=== PATIENT | male | born 1960 | race Caucasian/White ===

== ENCOUNTER 2016-10-26 10:03 | Outpatient (CLI) | payer MEDICARE | END 2016-10-26 10:04 | disposition home or self-care (01) | DX: B19.20 Unspecified viral hepatitis C without hepatic coma (principal) ==

== ENCOUNTER 2016-11-02 07:19 | Day surgery (SDC) | payer MEDICARE ==
[2016-11-02] MEDS ORDERED: LACTATED RINGERS 1,000 ML IV ONE ×2 (07:53→08:55)
[2016-11-02] MEDS ORDERED: ONDANSETRON 4 MG/2 ML VIAL IVP ONE (09:06)
[2016-11-02] MEDS ORDERED: MIDAZOLAM 2 MG/2 ML VIAL IVP ONE (09:06)
[2016-11-02] MEDS ORDERED: fentaNYL 250 MCG/5 ML VIAL IVP ONE (09:06)
== END 2016-11-02 07:20 | disposition home or self-care (01) ==
PROC: 0DBH8ZZ Excision of Cecum, Via Natural or Artificial Opening Endoscopic (ICD-10-PCS; principal; 2016-11-02 08:30)
DX: Z12.11 Encounter for screening for malignant neoplasm of colon (principal); D12.0 Benign neoplasm of cecum; K57.30 Diverticulosis of large intestine without perforation or abscess without bleeding; I10 Essential (primary) hypertension; N40.0 Benign prostatic hyperplasia without lower urinary tract symptoms
CPT/HCPCS: 45380; J3010; J7120

== ENCOUNTER 2016-11-29 09:19 | Outpatient (CLI) | payer MEDICARE | END 2016-11-29 09:20 | disposition home or self-care (01) | DX: B19.20 Unspecified viral hepatitis C without hepatic coma (principal) ==

== ENCOUNTER 2016-12-13 10:18 | Outpatient (CLI) | payer MEDICARE | END 2016-12-13 10:19 | disposition home or self-care (01) | DX: B19.20 Unspecified viral hepatitis C without hepatic coma (principal) ==

== ENCOUNTER 2017-01-10 09:11 | Outpatient (CLI) | payer MEDICARE | END 2017-01-10 09:12 | disposition home or self-care (01) | DX: B19.20 Unspecified viral hepatitis C without hepatic coma (principal) ==

== ENCOUNTER 2017-02-07 08:56 | Outpatient (CLI) | payer MEDICARE | END 2017-02-07 08:57 | disposition home or self-care (01) | DX: B19.20 Unspecified viral hepatitis C without hepatic coma (principal) ==

== ENCOUNTER 2017-05-10 09:27 | Outpatient (CLI) | payer MEDICARE ==
[2017-05-10 10:56] LABS: ALBUMIN/GLOBULIN RATIO 1.6 (1.0-2.2); CALCIUM 9.4 mg/dL (8.5-10.3); CREATININE 0.8 mg/dL (0.6-1.2); POTASSIUM 3.8 mmol/L (3.5-5.0); TOTAL PROTEIN 7.1 g/dL (6.7-8.2)
[2017-05-10 10:58] LABS: BASOPHILS % (AUTO) 0.5 %; EOSINOPHILS # (AUTO) 0.1 10^3/uL (0.0-0.7); EOSINOPHILS % (AUTO) 1.4 %; HCT - HEMATOCRIT 43.1 % (42.0-52.0); HGB - HEMOGLOBIN 14.9 g/dL (14.0-18.0); LYMPHOCYTES # (AUTO) 1.5 10^3/uL (1.5-3.5); LYMPHOCYTES % (AUTO) 31.5 %; MEAN CORPUSCULAR HEMOGLOBIN 30.6 pg (27.0-31.0); MEAN CORPUSCULAR HGB CONC 34.7 g/dL (32.0-36.0); MEAN CORPUSCULAR VOLUME 88.2 fL (80.0-94.0); MEAN PLATELET VOLUME 7.8 fL (7.4-11.4); MONOCYTES # (AUTO) 0.5 10^3/uL (0.0-1.0); MONOCYTES % (AUTO) 9.8 %; NEUTROPHILS # (AUTO) 2.7 10^3/uL (1.5-6.6); NEUTROPHILS % (AUTO) 56.8 %; RED BLOOD COUNT 4.88 10^6/uL (4.70-6.10); RED CELL DISTRIBUTION WIDTH 13.1 % (12.0-15.0); UNCORRECTED WHITE BLOOD COUNT 4.7 x10^3/uL; WHITE BLOOD COUNT 4.7 x10^3/uL (4.8-10.8)
== END 2017-05-10 09:28 | disposition home or self-care (01) ==
LOC: LAB 09:27
PROVIDERS: ATTEND Internal Medicine Gastroenterology
DX: B19.20 Unspecified viral hepatitis C without hepatic coma (principal)
CPT/HCPCS: 36415; 80053; 85025; 87522

== ENCOUNTER 2018-12-26 10:48 | Outpatient (CLI) | payer MEDICARE ==
--- NOTE | 2018-12-26 13:55 | Mammography Report ---
Reason: UNSPECIFIED LUMP IN THE RIGHT BREAST, UPPER INNER Procedure Date: 12/26/2018 Accession Number: [id number] / [id number] Procedure: ANTELMO - Diagnostic Dig Bilat CPT Code: FULL RESULT: EXAM: Diagnostic Dig Bilat DATE: 12/26/2018 11:48 AM CLINICAL HISTORY: Palpable lump in the right upper inner breast, present for approximately one year. TECHNIQUE: Bilateral CC, laterally exaggerated CC and MLO views as well as a right ML view are obtained. COMPARISON: None FINDINGS: The breasts demonstrate scattered fibroglandular densities bilaterally. There is a greater amount of breast glandular type tissue on the right as compared to the left, gynecomastia and typically benign. Seen on the right cc view only at the medial margin of the images a well-circumscribed hyperdense 1 cm nodule, incompletely imaged. Focused right breast ultrasound demonstrates a immediately subdermal hypoechoic complex cyst versus hypoechoic mass which measures up to 1 cm and demonstrates increased through transmission, and no internal vascularity. No pathognomonic features of a sebaceous cyst such as a duct to the skin surface are identified. Nevertheless, the appearance is that of a typically benign skin finding such as an inclusion cyst or sebaceous cyst. No suspicious mass, architectural distortion or calcifications are identified. IMPRESSION: Benign findings RECOMMENDATION: Clinical correlation. BIRADS CATEGORY 2: Benign findings STANDARD QUALIFYING STATEMENTS: 1. This examination was not reviewed with the aid of Computer-Aided Detection (CAD). 2. A negative or benign imaging report should not delay biopsy if clinically suspicious findings are present. Consider surgical consultation if warrented. More than 5% of cancers are not identified by imaging. 3. Dense breasts may obscure an underlying neoplasm. 4. This examination was reviewed with the aid of 3D imaging (tomography).
== END 2018-12-26 10:49 | disposition home or self-care (01) ==
LOC: DI 10:48
PROVIDERS: ATTEND Family Medicine
DX: N63.12 Unspecified lump in the right breast, upper inner quadrant (principal)
CPT/HCPCS: 76642; 77066

== ENCOUNTER 2019-07-29 11:34 | Emergency (ER) | payer MEDICARE ==
--- NOTE | 2019-07-29 14:21 | XRAY Report ---
Reason: slip fall lateral pain Procedure Date: 07/29/2019 Accession Number: [id number] / [id number] Procedure: XR - Hip w/Pelvis 1V LT CPT Code: FULL RESULT: EXAM: PELVIS RADIOGRAPHY EXAM DATE: 07/29/2019 01:56 PM. CLINICAL HISTORY: Slip fall lateral pain. COMPARISON: KNEE 4 VIEW LT 07/29/2019 1:36 PM. TECHNIQUE: 1 view. FINDINGS: Bones: Normal. No fracture or bone lesion. Joints: The visualized hip, pubis symphysis, and sacroiliac joints are preserved. No subluxation. Soft Tissues: Prior lumbosacral fusion surgery. No soft tissue swelling. IMPRESSION: No fracture evident. RADIA
--- NOTE | 2019-07-29 14:26 | XRAY Report ---
Reason: slip/twist unstable Procedure Date: 07/29/2019 Accession Number: [id number] / [id number] Procedure: XR - Knee 4 View LT CPT Code: FULL RESULT: EXAM: LEFT KNEE RADIOGRAPHY EXAM DATE: 07/29/2019 02:01 PM. CLINICAL HISTORY: Slip/twist, unstable. COMPARISON: None. TECHNIQUE: 3 views. FINDINGS: Bones: Normal. No fractures or bone lesions. Joints: No suprapatellar joint effusion. No subluxation. Knee joint space within normal limits. Soft Tissues: Normal. No soft tissue swelling. IMPRESSION: No fracture or subluxation detected. RADIA
--- NOTE | 2019-07-29 14:56 | ED Physician Documentation ---
PD HPI LOWER EXT INJURY - Stated complaint Stated Complaint: KNEE/HIP PX - Chief complaint Chief Complaint: Ext Problem - History obtained from History obtained from: Patient - History of Present Illness PD HPI LOW EXT INJURY LOCATION: Left, Knee Type of injury: Twist Where injury occurred: Home Timing - onset: How many days ago (5) Timing - duration: Days (5) Timing - details: Abrupt onset, Still present Improved by: Rest, Immobilization Worsened by: Moving, Palpating Associated symptoms: No: Swelling Similar symptoms before: Diagnosis (knee sprain) Recently seen: Not recently seen - Additional information Additional information: 59 yo male twisted his knee one week ago and has pain from the knee up to the left hip and his knee feels unstable. His pain has persisted and he has come to the ED for evaluation. Review of Systems Constitutional: denies: Fever Ears: denies: Ear pain Nose: denies: Congestion Throat: denies: Sore throat Respiratory: denies: Cough GI: denies: Vomiting PD PAST MEDICAL HISTORY - Past Medical History Past Medical History: Yes Cardiovascular: Hypertension, High cholesterol Respiratory: None Neuro: Peripheral neuropathy Endocrine/Autoimmune: None GI: GERD : None HEENT: None Psych: None Musculoskeletal: Chronic back pain Derm: None - Past Surgical History Past Surgical History: Yes Ortho: Shoulder arthroplasty, Spine surgery - Present Medications Home Medications: Ambulatory Orders Medication Instructions Recorded Confirmed Gabapentin 600 mg ORAL DAILY 11/01/16 11/01/16 Losartan [Cozaar] 10 mg ORAL DAILY 11/01/16 11/01/16 Norethindrone-Ethinyl Estrad 25 mg ORAL BID 11/01/16 11/01/16 [Nortrel 0.5-35 Tablet] Tamsulosin [Flomax] 1 cap ORAL DAILY 11/01/16 11/01/16 oxyCODONE ER [OxyCONTIN] 10 mg ORAL BID 11/01/16 11/01/16 oxyCODONE [Roxicodone] 10 mg ORAL BID PRN 11/01/16 11/01/16 - Allergies Allergies/Adverse Reactions: Allergies Allergy/AdvReac Type Severity Reaction Status Date / Time Penicillins Allergy Hives Verified 07/29/19 12:02 - Social History Does the pt smoke?: No Smoking Status: Never smoker Does the pt drink ETOH?: Yes Does the pt have substance abuse?: No - Immunizations Immunizations are current?: Yes - POLST Patient has POLST: No PD ED PE NORMAL - Vitals Vital signs reviewed: Yes (hypertensive) - General General: Alert and oriented X 3, No acute distress, Well developed/nourished - HEENT HEENT: Atraumatic, PERRL, EOMI - Respiratory Respiratory: No respiratory distress - Derm Derm: Normal color, Warm and dry, No rash - Extremities Extremities: No deformity, No edema, Other (Exam of the left knee shows no specific tenderness and only a slight opening medially with valgus forces. The distal n/v is intact. 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 ), EMP read indepedently, See rad report PD MEDICAL DECISION MAKING - ED course Complexity details: reviewed results, re-evaluated patient, considered [facility], d/w patient, d/w family ED course: 59-year-old male with a sprain to his left knee is placed into a knee immobilizer. Departure - Departure Disposition: 01 Home, Self Care Clinical Impression: Sprain of left knee Qualifiers: Encounter type: initial encounter Involved ligament of knee: unspecified ligament Qualified Code(s): S83.92XA - Sprain of unspecified site of left knee, initial encounter Condition: Stable Instructions: ED Sprain Knee Follow-Up: [facility] [Provider Group] Discharge Date/Time: 07/29/19 15:16
[2019-07-29 15:14] VITALS: BP 142/87
== END 2019-07-29 15:16 | disposition home or self-care (01) ==
LOC: ED 11:34
DX: S83.92XA Sprain of unspecified site of left knee, initial encounter (principal); X50.1XXA Overexertion from prolonged static or awkward postures, initial encounter; Y93.01 Activity, walking, marching and hiking; Y92.009 Unspecified place in unspecified non-institutional (private) residence as the place of occurrence of the external cause; I10 Essential (primary) hypertension
CPT/HCPCS: 99282; 99284

== ENCOUNTER 2019-08-19 16:34 | Outpatient (CLI) | payer MEDICARE ==
--- NOTE | 2019-08-20 09:51 | MRI Report ---
Reason: INTERNAL DERANGEMENT KNEE Procedure Date: 08/19/2019 Accession Number: [id number] / [id number] Procedure: MRI - Knee LT W/O CPT Code: Final Report FULL RESULT: EXAM: LEFT KNEE MRI WITHOUT CONTRAST EXAM DATE: 08/19/2019 05:21 PM. CLINICAL HISTORY: Left knee pain instability. COMPARISON: KNEE 4 VIEW LT 07/29/2019 1:36 PM. TECHNIQUE: Multiplanar, multisequence T1-weighted and fluid-sensitive sequences of the knee without contrast. Other: None. FINDINGS: Bones and articular cartilage: There is focal grade II-III chondromalacia at the medial femoral condyle. Focal grade III chondromalacia at the posterior aspect of the lateral tibial plateau. Grade III chondromalacia at the medial patellar facet. No subluxations. Medial Meniscus: Horizontal tear at the middle and inner thirds of the posterior horn. Lateral Meniscus: The lateral meniscus is intact. Cruciate Ligaments: There is mucoid degeneration and/or a mild sprain of the anterior cruciate ligament. The posterior cruciate ligament is unremarkable. Collateral Ligaments: The medial collateral and lateral collateral ligamentous structures are intact. Tendons: The quadriceps, patellar, semimembranosus, and popliteus tendons are unremarkable. Musculature: No edema or fatty atrophy. Other: No effusion. No popliteal cyst. No loose bodies. The medial and lateral retinacula are intact. The subcutaneous tissues and fat pads are unremarkable. IMPRESSION: 1. Tricompartmental chondromalacia. 2. Horizontal tear at the posterior horn medial meniscus. 3. Mucoid degeneration and/or mild sprain of the anterior cruciate ligament. RADIA
== END 2019-08-19 16:35 | disposition home or self-care (01) ==
LOC: DI 16:34
PROVIDERS: ATTEND Family Medicine
DX: M94.262 Chondromalacia, left knee (principal); S83.242A Other tear of medial meniscus, current injury, left knee, initial encounter

== ENCOUNTER 2019-08-27 16:26 | Outpatient (CLI) | payer MEDICARE ==
[2019-08-27] MEDS ORDERED: GADOBUTROL 15 MMOL/15 ML VIAL ONE (17:31)
[2019-08-27] MEDS ORDERED: GADOBUTROL 15 MMOL/15 ML VIAL IVP ONE (17:53)
--- NOTE | 2019-08-28 12:24 | MRI Report ---
Reason: RADICULOPATHY LUMBAR REGION Procedure Date: 08/27/2019 Accession Number: [id number] / [id number] Procedure: MRI - Lumbar Spine W/WO CPT Code: Final Report FULL RESULT: EXAM: MRI LUMBAR SPINE WITHOUT AND WITH CONTRAST EXAM DATE: 08/27/2019 06:11 PM. CLINICAL HISTORY: Lumbar radiculopathy. COMPARISONS: MRI LUMBAR SPINE 10/13/2012 7:[address] W/O 03/12/2013 11:23 AM. TECHNIQUE: Multiplanar, multisequence T1-weighted and fluid-sensitive sequences of the lumbar spine from T12 to S1 before and after administration of intravenous contrast. Other: None. IV contrast: 12 cc Gadavist. FINDINGS: Neurologic Structures: The conus terminates at T12-L1. The conus medullaris and cauda equina are unremarkable. Alignment: Grade 1 retrolisthesis at L3-L4 by approximately 3 mm. Bone Marrow: Note, transitional anatomy is present at the lumbosacral junction. For the purpose of this report, the transitional segment will be designated as L5 which is sacralized. This numerical designation would be consistent with a numerical designation given on the previous studies. There are metallic left-sided pedicle screws and left-sided posterior interlocking fusion tavia at L4 and L5. No acute fracture or bone lesions. Disk Levels/Facets: L5-S1: Hypoplastic disk. No stenosis. Previous right hemilaminectomy. No change. L4-L5: Interbody fusion device within the disk space. Bony fusion between L4 and L5 vertebral bodies. Previous partial left facetectomy. Previous right hemilaminectomy. No canal stenosis. There is questionable bony union between the left posterior lateral inferior aspect of the L4 vertebral body and the anterior inferior aspect of the left L4-L5 facet joint. Mild left foraminal stenosis. L3-L4: Small to moderate sized disk bulge which is asymmetric towards the right which has increased in size since the prior study. There are posterior lateral osteophytes. Moderate left facet arthropathy. Previous right hemilaminectomy. Mild to moderate canal stenosis. Mild to moderate foraminal stenosis which has increased in size since the prior study. L2-L3: Minimal disk bulge. Mild facet arthropathy. Mild canal and foraminal stenosis which has increased slightly since prior study. L1-L2: Minimal disk bulge. Mild facet arthropathy. No stenosis. No change. T12-L1: Unremarkable. Spinal Canal: No enhancing masses within the spinal canal. No epidural abscess. Musculature: Normal. No edema, abnormal enhancement, or fatty atrophy. Other: The visualized retroperitoneum is unremarkable. IMPRESSION: 1. Note, transitional anatomy is present at the lumbosacral junction. For the purpose of this report and to be consistent with the numerical designation given on the previous studies, the transitional segment will be designated as L5 which is sacralized. Prior to any surgical intervention, an intraoperative lateral lumbar spine radiograph with a localizing instrument is recommended. This radiograph should be correlated with the sagittal MR images to avoid any confusion with respect to exact anatomic location. 2. Small to moderate sized asymmetric disk bulge/osteophyte complex towards the right at L3-L4. Mild to moderate canal and foraminal stenosis. The disk bulge /osteophyte complex and the degree of foraminal stenosis have increased since the prior study. 3. Postoperative changes related to previous fusion and decompression at L4-L5. There is questionable bony union between the left posterior lateral inferior aspect of the L4 vertebral body in the anteroinferior aspect of the left L4-L5 facet joint. Mild left foraminal stenosis. Comment: The following findings are so common in adults without low back pain that while we report their presence, they must be interpreted with caution and in the context of the clinical situation. (Reference Jose Eliask et al, Spine 2001) Prevalence of findings in patients without low back pain: Disk degeneration (any evidence): 92% Disk desiccation/T2 signal loss: 83% Disk height loss: 56% Disk bulge: 64% Disk protrusion: 32% Annular tear/high intensity zone: 38% RADIA
== END 2019-08-27 16:27 | disposition home or self-care (01) ==
LOC: DI 16:26
PROVIDERS: ATTEND Orthopaedic Surgery
DX: M47.816 Spondylosis without myelopathy or radiculopathy, lumbar region (principal); M48.061 Spinal stenosis, lumbar region without neurogenic claudication; Z98.1 Arthrodesis status; M51.36 Other intervertebral disc degeneration, lumbar region
CPT/HCPCS: 72158; A9585

== ENCOUNTER 2019-09-11 05:01 | Outpatient (CLI) | payer MEDICARE | END 2019-09-11 05:02 | disposition EMS.NT | LOC: EMS 05:01 | PROVIDERS: ATTEND Surgery | DX: M54.5 Low back pain (principal) ==

== ENCOUNTER 2020-03-31 09:30 | Outpatient (CLI) | payer MEDICARE ==
[2020-03-31 11:59] LABS: BASOPHILS % (AUTO) 0.8 %; EOSINOPHILS # (AUTO) 0.2 10^3/uL (0.0-0.7); HGB - HEMOGLOBIN 14.8 g/dL (14.0-18.0); LYMPHOCYTES # (AUTO) 1.8 10^3/uL (1.5-3.5); LYMPHOCYTES % (AUTO) 36.9 %; MEAN CORPUSCULAR HEMOGLOBIN 30.5 pg (27.0-31.0); MEAN CORPUSCULAR HGB CONC 33.9 g/dL (32.0-36.0); MEAN CORPUSCULAR VOLUME 90.1 fL (80.0-94.0); MEAN PLATELET VOLUME 9.9 fL (7.4-11.4); MONOCYTES # (AUTO) 0.7 10^3/uL (0.0-1.0); MONOCYTES % (AUTO) 13.2 %; NEUTROPHILS # (AUTO) 2.3 10^3/uL (1.5-6.6); NEUTROPHILS % (AUTO) 45.7 %; PLT - PLATELET COUNT 149 10^3/uL (130-450); RED BLOOD COUNT 4.85 10^6/uL (4.70-6.10); RED CELL DISTRIBUTION WIDTH 13.1 % (12.0-15.0)
[2020-03-31 12:20] LABS: ALBUMIN 4.7 g/dL (3.2-5.5); ALBUMIN/GLOBULIN RATIO 2.2 (1.0-2.2); BILIRUBIN,TOTAL 0.8 mg/dL (0.2-1.0); CREATININE 0.7 mg/dL (0.6-1.2); TOTAL PROTEIN 6.8 g/dL (6.7-8.2)
[2020-03-31 12:32] LABS: FERRITIN 94.2 ng/mL (23.9-336.2)
== END 2020-03-31 23:59 | disposition home or self-care (01) ==
LOC: LAB.WCP 09:30
PROVIDERS: ATTEND Family Medicine
DX: D64.9 Anemia, unspecified (principal)
CPT/HCPCS: 36415; 80053; 82607; 82728; 82746; 83540; 84466; 85025

== ENCOUNTER 2020-12-08 06:39 | Outpatient (CLI) | payer MEDICARE, MEDICAID ==
--- NOTE | 2020-12-08 17:08 | Ultrasound Report ---
PROCEDURE: Abdomen Complete INDICATIONS: UMBILICAL HERNIA, LUQ ABD PAIN TECHNIQUE: Real-time scanning was performed of the abdominal and retroperitoneal organs, with image documentatio n. COMPARISON: Prior abdominal ultrasound dated 04/11/2011 FINDINGS: Liver: Liver is diffusely increased in echogenicity and coarse in appearance. No focal hepatic abnorm ality seen. Gallbladder: Normal appearance of the gallbladder. Biliary ducts: Intrahepatic bile ducts are non-dilated. Extrahepatic bile duct caliber measures 4.4 mm. Normal is 6-7 mm or less in diameter, or 10 mm or less post-cholecystectomy. Pancreas: Visualized portions of the pancreas are sonographically normal. Spleen: Spleen is normal in size and homogeneous in echotexture. Kidneys: Kidneys are normal in size and echotexture. Right kidney measures 10.9 cm long; left kidne y measures 12.2 cm long. No hydronephrosis or nephrolithiasis. No solid masses. Aorta: Visualized aorta is normal in caliber at less than 3 cm. Iliacs: Proximal common iliac arteries are normal in caliber at less than 2.5 cm. IVC: Intrahepatic inferior vena cava is patent. Miscellaneous: No free abdominal fluid. Fat-containing umbilical hernia present. IMPRESSION: 1. Increased echogenicity noted throughout the liver likely related to hepatic steatosis; however oth er sources of hepatocellular disease cannot be excluded and close clinical correlation and follow-up is recommended. 2. Fat-containing umbilical hernia with fascial defect estimated at 3.5 x 2.8 cm. Reviewed by: MICHELINE Esteves on 12/08/2020 5:06 PM PST Approved by: Oly Logan MD on 12/08/2020 5:06 PM PST Station ID: [id number]
== END 2020-12-08 06:40 | disposition home or self-care (01) ==
LOC: DI 06:39
PROVIDERS: ATTEND Internal Medicine Gastroenterology
DX: R10.12 Left upper quadrant pain (principal); K42.9 Umbilical hernia without obstruction or gangrene

== ENCOUNTER 2021-06-16 12:33 | Outpatient (CLI) | payer MEDICAID, MEDICARE | END 2021-06-16 12:34 | disposition home or self-care (01) | LOC: COV 12:33 | PROVIDERS: ATTEND Family Medicine | DX: Z01.812 Encounter for preprocedural laboratory examination (principal); Z20.822 Contact with and (suspected) exposure to COVID-19 ==

== ENCOUNTER 2021-07-08 08:08 | Outpatient (CLI) | payer MEDICARE ==
[2021-07-08 08:37] LABS: BASOPHILS % (AUTO) 0.7 %; EOSINOPHILS # (AUTO) 0.1 10^3/uL (0.0-0.7); EOSINOPHILS % (AUTO) 1.6 %; HGB - HEMOGLOBIN 15.9 g/dL (14.0-18.0); LYMPHOCYTES # (AUTO) 1.5 10^3/uL (1.5-3.5); LYMPHOCYTES % (AUTO) 32.4 %; MEAN CORPUSCULAR HEMOGLOBIN 33.2 pg (27.0-31.0); MEAN CORPUSCULAR HGB CONC 35.3 g/dL (32.0-36.0); MEAN CORPUSCULAR VOLUME 93.9 fL (80.0-94.0); MEAN PLATELET VOLUME 9.3 fL (7.4-11.4); MONOCYTES # (AUTO) 0.4 10^3/uL (0.0-1.0); MONOCYTES % (AUTO) 9.6 %; NEUTROPHILS # (AUTO) 2.5 10^3/uL (1.5-6.6); NEUTROPHILS % (AUTO) 55.7 %; PLT - PLATELET COUNT 150 10^3/uL (130-450); RED BLOOD COUNT 4.79 10^6/uL (4.70-6.10); RED CELL DISTRIBUTION WIDTH 12.3 % (12.0-15.0); WHITE BLOOD COUNT 4.5 x10^3/uL (4.8-10.8)
[2021-07-08 08:56] LABS: INR 1.1 (0.8-1.2); PT - PROTHROMBIN TIME 12.8 secs (9.9-12.6)
[2021-07-08 09:05] LABS: ALBUMIN 4.2 g/dL (3.2-5.5); ALBUMIN/GLOBULIN RATIO 1.4 (1.0-2.2); BILIRUBIN,TOTAL 1.5 mg/dL (0.2-1.0); CALCIUM 10.3 mg/dL (8.5-10.3); CREATININE 0.7 mg/dL (0.6-1.2); POTASSIUM 3.8 mmol/L (3.5-5.0); TOTAL PROTEIN 7.1 g/dL (6.7-8.2)
== END 2021-07-08 08:09 | disposition home or self-care (01) ==
LOC: LAB 08:08
PROVIDERS: ATTEND Family Medicine
DX: M54.15 Radiculopathy, thoracolumbar region (principal)
CPT/HCPCS: 36415; 80053; 85025; 85610; 87640

== ENCOUNTER 2021-07-12 15:59 | Outpatient (CLI) | payer MEDICARE | END 2021-07-12 16:00 | disposition home or self-care (01) | LOC: COV 15:59 | PROVIDERS: ATTEND Family Medicine | DX: Z01.812 Encounter for preprocedural laboratory examination (principal); Z20.822 Contact with and (suspected) exposure to COVID-19 ==

== ENCOUNTER 2021-12-21 08:50 | Outpatient (CLI) | payer MEDICAID, MEDICARE ==
--- NOTE | 2021-12-21 14:35 | XRAY Report ---
PROCEDURE: Thoracic Spine 2 View INDICATIONS: MID BACK PAIN, LOW BACK PAIN TECHNIQUE: 3 views of the thoracic spine were acquired. COMPARISON: None. FINDINGS: Bones: No fractures or dislocations. No suspicious bony lesions. 12 pairs of ribs are noted, and a ppear intact where visualized. Lower thoracic spine neurostimulator leads. Moderate degenerative disc changes noted throughout the thoracic spine. Soft tissues: No paravertebral stripe thickening. IMPRESSION: 1. Multilevel moderate degenerative disc disease. 2. No fracture. No acute osseous lesion. If there is continued clinical concern for pathology, then M RI should be considered for further evaluation. Reviewed by: Jennifer Covarrubias MD, PhD on 12/21/2021 2:33 PM PDT Approved by: Jennifer Covarrubias MD, PhD on 12/21/2021 2:33 PM PDT Station ID: [id number]
== END 2021-12-21 08:51 | disposition home or self-care (01) ==
LOC: DI 08:50
PROVIDERS: ATTEND Anesthesiology Pain Medicine
DX: M51.34 Other intervertebral disc degeneration, thoracic region (principal); R07.9 Chest pain, unspecified; I10 Essential (primary) hypertension; Z87.891 Personal history of nicotine dependence; R94.39 Abnormal result of other cardiovascular function study
CPT/HCPCS: 72070; 78452; 93017; A9500; J2785

== ENCOUNTER 2021-12-21 08:59 | Outpatient (CLI) | payer MEDICARE ==
--- NOTE | 2021-12-21 09:47 | CARDIAC PROCEDURE NOTE ---
Stress Test Report Service Date: 12/21/21 Service Time: 09:00 Ordering Provider: Casa Wilks DO Indication for Test: Assess atypical chest discomfort. Significant Medical History: -Julio César has a complex medical history, largely emanating from a severe accident in 2010 occurring at his occupational site at [email or web address]. He fell on some ice, with severe spinal injuries that have subsequently required a total of 4 back surgeries, including laminectomies and fusions, most recently with implant of a neurostimulator, that has provided great relief of his back pain and allowed him to be more active with reduced pain medication requirement. These injuries are superimposed on a known history of ankylosing spondylitis. -He underwent a trial with a temporary neuromodulator implant with immediate pain reduction in fall 2020, that was followed by the permanent implant. He reports that after a few weeks of healing he started to notice some undulating left flank pain, that remains present nearly constantly, varying in intensity in the range of 34/10. Over the ensuing months he has experienced episodes that typically start with a sense of his heart racing, followed by shortness of breath and then radiation of the stabbing left flank discomfort around anteriorly toward his heart and central chest. There is an associated tenderness, that can be reduced by massaging and he notes that standing up and moving around can also help reduce the intensity of this discomfort. Symptom episodes may last anywhere from 5 minutes to 5 hours. With his effective neuromodulation and current pain regimen he is able to perform 1 to 2 hours of household tasks and does not experience typical chest pressure/heaviness/discomfort with these activities, nor reduction in his stamina, per his report. Cardiac Risk Factors: Positive for several years of treated hypertension; negative for diabetes, hyperlipidemia and family history of coronary heart disease. He smoked briefly over 40 years ago, so tobacco is not a risk factor for him. Type of Stress Test: Pharmacologic Stress Test with MPI Pharmacologic Agent: Lexiscan Procedure: -Pharmacologic Stress Test- After signing informed consent, the patient underwent rest SPECT imaging and then performed a walking Lexiscan pharmacologic stress test. After obtaining resting vital signs and EKG (resting), the patient walked for 2 minutes (without elevation) at 0.8 mph ("baseline") followed by injection of Lexiscan and high dose 99Tc-Myoview with an additional 2 minutes of walking ("peak" reassessment) followed by monitoring for an additional 4 minutes ("recovery"). The test was terminated due to completing the protocol. Resting HR: 90 Baseline HR: 100 Peak HR: 110 Normal HR response. Resting BP: 179/83 Baseline BP: 182/81 Peak BP: 203/88 Hypertensive at rest with physiologic BP response to walking/Lexiscan. Rhythm during testing: Sinus rhythm throughout. Symptoms: Patient's "background" left flank discomfort was <1 in intensity at baseline, did not increase with the stress protocol and there was no discomfort radiation anteriorly toward his heart. He became acutely dyspneic with Lexiscan administration, with nearly full resolution of this symptom after 2 minutes of recovery. EKG at rest showed normal sinus rhythm, within normal limits. EKG at peak stress showed no ischemia by EKG criteria. Nuclear imaging was repeated following the stress protocol. The image interpretation will be reported separately. IBryant MD, was present throughout this walking Lexiscan stress study and supervised it in its entirety. Summary: 1) Normal resting EKG. 2) Adequate stress was likely achieved. 3) Hyertensive at rest with physiologic BP response to walking and the pharmacologic agent. 4) No ischemic changes by EKG criteria were seen at peak stress. 5) Analysis of gated nuclear images reveals normal left ventricular size and systolic function; preliminary review of SPECT images reveals a resting perfusion defect in the inferior wall that does not change appreciably with stress (and may represent a prior infarct), with a stress associated defect in the anteroseptal region that appears much less evident on rest imaging, concerning for ischemia. The formal interpretation by our Radiologist suggests that the anteroseptal defect "normalizes in the prone position and likely represents a soft tissue attenuation artifact". See separate report for more detail. CONCLUSIONS: 1) Clinically negative walking Lexiscan stress study, without recreation of patient's atypical chest symptoms, and without EKG findings indicative of ischemia. 2) Abnormal myocardial perfusion imaging results, raising concern for possible ischemia and/or infarct in two coronary artery distributions. Further evaluation by Cardiology with consideration of coronary angiography is recommended.
[2021-12-21] MEDS ORDERED: AMINOPHYLLINE 500 MG/20 ML VIAL ONE (11:23)
[2021-12-21] MEDS ORDERED: REGADENOSON 0.4 MG/5 ML SYRINGE IVP ONE (11:23)
[2021-12-21] MEDS: REGADENOSON 0.4 MG/5 ML SYRINGE IVP ONE (11:27)
--- NOTE | 2021-12-21 16:35 | Nuclear Medicine Report ---
PROCEDURE: Rest and pharmacological stress myocardial perfusion SPECT with gated imaging and ejection fraction INDICATIONS: PROSTATE CANCER RADIOPHARMACEUTICAL: 13.4 mCi Tc-99m tetrafosmin IV at rest and 40.5 mCi Tc-99m tetrafosmin IV at pe ak effect of pharmacological stress. A [id number] was performed. TECHNIQUE: Radiopharmaceutical was injected at peak stress test, and also at rest. SPECT images wer e obtained. SPECT myocardial perfusion images were displayed in short axis, horizontal long axis, an d vertical long axis views. Gated images were reviewed using Auto[employer] software. COMPARISON: None available. CARDIAC STRESS: A pharmacologic stress test was performed under the supervision of an attending staff, using an infus ion of 0.4 mg LexiScan. Hemodynamic data: There is normal blood pressure and heart rate response to pharmacologic stress. Symptoms: The patient denied anginal chest pain. Aminophylline: None EKG: No diagnostic changes of ischemia; no ectopy. FINDINGS: Raw data: There is good myocardial uptake of radiotracer. No significant motion artifacts. Lung-to -heart ratio is 0.33 (normal is less than 0.38 for tetrafosmin tracer). Left ventricle function: Gated images demonstrate normal left ventricular wall thickening. No segme ntal wall motion abnormalities. No transient ischemic dilation; TID is 0.90 (normal less than 1.3). Left ventricle resting end diastolic volume is 115 mL. Left ventricle stress ejection fraction is 70%; normal range is above 45%. Myocardial perfusion: There is a small fixed perfusion defect in the inferolateral wall which does n ot normalize in the prone position. There is an apparent, reversible, perfusion defect in the anterio r-septal wall which normalizes in the prone position and likely represents a soft tissue attenuation artifact. IMPRESSION: 1. Small fixed perfusion defect involving the distal inferior-lateral wall compatible with area of pr ior infarction. There is an apparent reversible perfusion defect involving the distal anterior septal wall which normalizes in the prone position and likely represents soft tissue attenuation artifact. Recommend cardiology consultation. 2. Normal left ventricular function with no segmental wall motion abnormalities and normal stress LVE F of 70%. PQRS ATTESTATIONS: Measure 322 - Is this imaging test primarily performed on a low-risk surgery patient for preoperative evaluation within 30 days preceding their low-risk non-cardiac surgery? Low-risk surgery is defined as cardiac or myocardial infarction less than 1%, including (but not limited to) endoscopic pr ocedures, superficial procedures, cataract surgery, and excisional breast surgery: Answer: No Measure 323 - Is this imaging test performed primarily for the monitoring of an asymptomatic patient who had percutaneous coronary intervention on the visit date or within 2 years of the visit date? An swer: No Measure 324 - Is this imaging test performed primarily for the initial detection and risk assessment on an asymptomatic, low coronary heart disease patient? Low CHD risk definition = clinicians should consider the maximum number of available patient factors used to estimate risk based on [place] (A TP III criteria), typically age, gender, diabetes, smoking status, and use of blood pressure medicati on, and integrate age appropriate estimates for missing elements, such as LDL or standard blood press ure. Answer: No Reviewed by: Jennifer Covarrubias MD, PhD on 12/21/2021 4:33 PM PDT Approved by: Jennifer Covarrubias MD, PhD on 12/21/2021 4:33 PM PDT Station ID: [id number]
== END 2021-12-21 09:00 | disposition home or self-care (01) ==
LOC: DI 08:59
PROVIDERS: ATTEND Family Medicine
DX: R07.9 Chest pain, unspecified (principal); I10 Essential (primary) hypertension; Z87.891 Personal history of nicotine dependence; R94.39 Abnormal result of other cardiovascular function study
CPT/HCPCS: 93017

== ENCOUNTER 2022-01-11 12:03 | Outpatient (CLI) | payer MEDICARE ==
[2022-01-11 12:06] LABS: BASOPHILS % (AUTO) 0.7 %; EOSINOPHILS # (AUTO) 0.1 10^3/uL (0.0-0.7); EOSINOPHILS % (AUTO) 2.3 %; LYMPHOCYTES # (AUTO) 1.9 10^3/uL (1.5-3.5); LYMPHOCYTES % (AUTO) 33.7 %; MEAN CORPUSCULAR HEMOGLOBIN 32.4 pg (27.0-31.0); MEAN CORPUSCULAR HGB CONC 36.4 g/dL (32.0-36.0); MEAN CORPUSCULAR VOLUME 89.1 fL (80.0-94.0); MEAN PLATELET VOLUME 9.1 fL (7.4-11.4); MONOCYTES # (AUTO) 0.6 10^3/uL (0.0-1.0); MONOCYTES % (AUTO) 9.9 %; NEUTROPHILS # (AUTO) 3.1 10^3/uL (1.5-6.6); NEUTROPHILS % (AUTO) 53.2 %; PLT - PLATELET COUNT 151 10^3/uL (130-450); RED BLOOD COUNT 4.94 10^6/uL (4.70-6.10); RED CELL DISTRIBUTION WIDTH 13.2 % (12.0-15.0); WHITE BLOOD COUNT 5.8 x10^3/uL (4.8-10.8)
[2022-01-11 12:18] LABS: ALBUMIN 4.5 g/dL (3.2-5.5); ALBUMIN/GLOBULIN RATIO 1.6 (1.0-2.2); BILIRUBIN,TOTAL 1.5 mg/dL (0.2-1.0); CREATININE 0.7 mg/dL (0.6-1.2); POTASSIUM 3.8 mmol/L (3.5-5.0); TOTAL PROTEIN 7.4 g/dL (6.7-8.2)
[2022-01-11] MEDS ORDERED: GADOBUTROL 15 MMOL/15 ML VIAL ONE (13:41)
--- NOTE | 2022-01-11 16:13 | MRI Report ---
PROCEDURE: Thoracic Spine W/O INDICATIONS: MID BACK PAIN, LOW BACK PAIN TECHNIQUE: Noncontrast sagittal T1 spine echo and T2 fast spin echo, sagittal STIR, axial T1 and T2 fast spin ec ho through the thoracic spine. COMPARISON: None. FINDINGS: Image quality: Mildly degraded by susceptibility artifact related to thoracic spine neurostimulator l ead. Alignment and Curvature: There is normal bony alignment. Bone Marrow: Benign, intraosseous hemangioma noted in the T11 vertebral body. Minimal reactive endpla te changes noted throughout the mid thoracic spine. No acute vertebral body compression fractures. Spinal Cord: Visualized spinal cord is normal in size and signal. Paraspinous Soft Tissues: No paravertebral masses. Miscellaneous: Mild degenerative disc changes noted throughout the thoracic spine. Mild facet hypertr ophy in the lower thoracic spine No central stenosis. Mild bilateral T11-T12 neural foraminal narrowi ng. No neural compression. IMPRESSION: 1. Mild multilevel degenerative disc disease. 2. Mild multilevel facet arthropathy. 3. No severe central canal narrowing. 4. No severe neural foraminal narrowing. 5. No neural compression. Reviewed by: Jennifer Covarrubias MD, PhD on 01/11/2022 4:11 PM PDT Approved by: Jennifer Covarrubias MD, PhD on 01/11/2022 4:11 PM PDT Station ID: [id number]
[2022-01-11] MEDS ORDERED: GADOBUTROL 15 MMOL/15 ML VIAL IVP ONE (16:21)
--- NOTE | 2022-01-12 13:39 | MRI Report ---
PROCEDURE: MRI lumbar spine with and without contrast INDICATIONS: MID BACK PAIN, LOW BACK PAIN CONTRAST: IV CONTRAST: Gadavist ml: 10.8 TECHNIQUE: Noncontrast sagittal T1 spin echo and T2 fast spin echo, sagittal STIR, axial T1 and T2 fast spin ech o through the lumbar spine. In cases with scoliosis, additional coronal T2 fast spin echo may be per formed. After the administration of contrast, sagittal and axial T1 spin echo with fat saturation th rough the lumbar spine. COMPARISON: 08/27/2019 FINDINGS: Image quality: Excellent. Alignment and curvature: There is normal bony alignment. Transitional element noted. There is parti al sacralization of L5 segment. Numbering convention corresponds with prior imaging. Marrow: L3-4 interbody fusion with posterior tavia and screw instrumentation. Posterior instrumentation at L4-5 has been removed. Modic type II degenerative endplate changes noted at L4-5 Spinal cord: Conus medullaris terminates at the L1 superior endplate level. Visualized spinal cord demonstrates normal signal, without suspicious enhancement. Paraspinous soft tissues: No paravertebral masses or abnormal enhancement. T12-L1: Normal in appearance. L1-L2: Normal in appearance. L2-L3: Disc height is preserved. Mild circumferential disc bulge combines with dorsal epidural fat result in mild central stenosis. Hypertrophic facet joints results in moderate bilateral foraminal s tenosis. L3-L4: Discectomy and fusion with posterior instrumentation. There is been a right laminectomy. No central stenosis. Hypertrophic facet joints result in moderate right and mild left foraminal stenosis L4-L5: Discectomy and fusion present. A right-sided laminectomy defect noted. No central stenosis. Severe left and mild right foraminal stenosis. L5-S1: No central or foraminal stenosis IMPRESSION: 1. Please note, transitional anatomy present. There is partial sacralization of the L5 vertebral segm ent, corresponding with prior numbering convention. 2. Interval L3-4 interbody fusion with posterior tavia and screw instrumentation. Central stenosis has resolved. 3. L4-5 interbody effusion. Instrumentation has been removed from the prior exam Reviewed by: Avelino Haji MD on 01/12/2022 12:38 PM ERIN Approved by: Avelino Haji MD on 01/12/2022 12:38 PM AKDT Station ID: [id number]
== END 2022-01-11 12:04 | disposition home or self-care (01) ==
LOC: DI 12:03
PROVIDERS: ATTEND Anesthesiology Pain Medicine
DX: M51.34 Other intervertebral disc degeneration, thoracic region (principal); M47.814 Spondylosis without myelopathy or radiculopathy, thoracic region; R07.9 Chest pain, unspecified; Z98.1 Arthrodesis status; M47.816 Spondylosis without myelopathy or radiculopathy, lumbar region
CPT/HCPCS: 36415; 72146; 72158; 80053; 85025; A9585

== ENCOUNTER 2022-10-14 09:58 | Outpatient (CLI) | payer MEDICARE ==
[2022-10-14 10:23] LABS: BASOPHILS # (AUTO) 0.1 10^3/uL (0.0-0.1); EOSINOPHILS # (AUTO) 0.1 10^3/uL (0.0-0.7); EOSINOPHILS % (AUTO) 1.3 %; HCT - HEMATOCRIT 35.1 % (42.0-52.0); HGB - HEMOGLOBIN 12.4 g/dL (14.0-18.0); LYMPHOCYTES # (AUTO) 1.4 10^3/uL (1.5-3.5); LYMPHOCYTES % (AUTO) 26.1 %; MEAN CORPUSCULAR HEMOGLOBIN 32.4 pg (27.0-31.0); MEAN CORPUSCULAR HGB CONC 35.3 g/dL (32.0-36.0); MEAN CORPUSCULAR VOLUME 91.6 fL (80.0-94.0); MEAN PLATELET VOLUME 9.5 fL (7.4-11.4); MONOCYTES # (AUTO) 0.5 10^3/uL (0.0-1.0); MONOCYTES % (AUTO) 9.4 %; NEUTROPHILS # (AUTO) 3.2 10^3/uL (1.5-6.6); NEUTROPHILS % (AUTO) 61.8 %; PLT - PLATELET COUNT 107 10^3/uL (130-450); RED BLOOD COUNT 3.83 10^6/uL (4.70-6.10); WHITE BLOOD COUNT 5.2 x10^3/uL (4.8-10.8)
[2022-10-14 10:50] LABS: ALBUMIN 4.2 g/dL (3.2-5.5); ALBUMIN/GLOBULIN RATIO 1.4 (1.0-2.2); ALKALINE PHOSPHATASE 66 IU/L (42-121); ALT ALANINE AMINOTRANSFERASE 29 IU/L (10-60); AST ASPARTATE AMINOTRANSFERASE 38 IU/L (10-42); BILIRUBIN,TOTAL 1.6 mg/dL (0.2-1.0); BUN - BLOOD UREA NITROGEN 19 mg/dL (6-20); CALCIUM 9.2 mg/dL (8.5-10.3); CARBON DIOXIDE - CO2 26 mmol/L (21-32); CHLORIDE 104 mmol/L (101-111); CHOL/HDL RATIO 2.8 (<5.0); CHOLESTEROL 122 mg/dL; CREATININE 1.4 mg/dL (0.6-1.2); GFR - MDRD 51 (>89); GLUCOSE 122 mg/dL (70-100); HDL CHOLESTEROL 43 mg/dL; LDL CHOLESTEROL,CALCULATED 38 mg/dL; LDL/HDL RATIO 0.9 (<3.6); POTASSIUM 3.9 mmol/L (3.5-5.0); SODIUM 142 mmol/L (135-145); TOTAL PROTEIN 7.2 g/dL (6.7-8.2); TRIGLYCERIDES 203 mg/dL; VLDL CHOLESTEROL 41 mg/dL
[2022-10-14 10:52] LABS: CRP - C-REACTIVE PROTEIN < 1.0 mg/dL (0-1.0)
[2022-10-14 11:04] LABS: THYROID STIMULATING HORMONE 2.03 uIU/mL (0.34-5.60)
[2022-10-14 11:13] LABS: FOLATE 12.84 ng/mL (5.90 - >24.8)
[2022-10-14 14:12] LABS: ESTIMATED AVERAGE GLUCOSE 114 mg/dL (70-100); HEMOGLOBIN A1c% 5.6 % (4.27-6.07)
== END 2022-10-14 09:59 | disposition home or self-care (01) ==
LOC: LAB 09:58
PROVIDERS: ATTEND Internal Medicine Rheumatology
DX: E78.5 Hyperlipidemia, unspecified (principal); G62.9 Polyneuropathy, unspecified; M45.9 Ankylosing spondylitis of unspecified sites in spine; G93.32 Myalgic encephalomyelitis/chronic fatigue syndrome; N40.1 Benign prostatic hyperplasia with lower urinary tract symptoms; N13.8 Other obstructive and reflux uropathy; R73.01 Impaired fasting glucose
CPT/HCPCS: 36415; 80053; 80061; 82607; 82746; 83036; 83721; 84153; 84403; 84443; 85025; 85651; 86140

== ENCOUNTER 2022-11-04 08:16 | Outpatient (CLI) | payer MEDICARE ==
[2022-11-04 08:39] LABS: BASOPHILS # (AUTO) 0.1 10^3/uL (0.0-0.1); BASOPHILS % (AUTO) 0.7 %; EOSINOPHILS # (AUTO) 0.1 10^3/uL (0.0-0.7); EOSINOPHILS % (AUTO) 1.6 %; HCT - HEMATOCRIT 35.4 % (42.0-52.0); HGB - HEMOGLOBIN 12.4 g/dL (14.0-18.0); LYMPHOCYTES # (AUTO) 1.6 10^3/uL (1.5-3.5); LYMPHOCYTES % (AUTO) 23.4 %; MEAN CORPUSCULAR HEMOGLOBIN 33.2 pg (27.0-31.0); MEAN CORPUSCULAR VOLUME 94.7 fL (80.0-94.0); MEAN PLATELET VOLUME 9.7 fL (7.4-11.4); MONOCYTES # (AUTO) 0.7 10^3/uL (0.0-1.0); MONOCYTES % (AUTO) 10.3 %; NEUTROPHILS # (AUTO) 4.4 10^3/uL (1.5-6.6); NEUTROPHILS % (AUTO) 63.6 %; PLT - PLATELET COUNT 131 10^3/uL (130-450); RED BLOOD COUNT 3.74 10^6/uL (4.70-6.10); RED CELL DISTRIBUTION WIDTH 13.4 % (12.0-15.0); WHITE BLOOD COUNT 6.9 x10^3/uL (4.8-10.8)
[2022-11-04 08:53] LABS: CREATININE 2.2 mg/dL (0.6-1.2)
[2022-11-04 09:17] LABS: BILIRUBIN,URINE NEGATIVE (NEGATIVE); GLUCOSE, URINE (UA) NEGATIVE (NEGATIVE); KETONES,URINE (UA) NEGATIVE (NEGATIVE); LEUKOCYTE ESTERASE, URINE NEGATIVE (NEGATIVE); NITRITE,URINE NEGATIVE (NEGATIVE); OCCULT BLOOD,URINE NEGATIVE (NEGATIVE); PH,URINE 6.5 PH (5.0-7.5); PROTEIN,URINE NEGATIVE (NEGATIVE); UROBILINOGEN,URINE 0.2 (NORMAL) E.U./dL (NORMAL)
[2022-11-04 09:26] LABS: BACTERIA,URINE None Seen /HPF (None Seen); CLARITY,URINE CLEAR (CLEAR); RBC,URINE None Seen /HPF (0-5); SQUAMOUS EPITHELIAL CELL,UR NONE SEEN (<= Few); WBC,URINE 0-3 /HPF (0-3)
== END 2022-11-04 08:17 | disposition home or self-care (01) ==
LOC: LAB 08:16
PROVIDERS: ATTEND Internal Medicine Rheumatology
DX: N28.9 Disorder of kidney and ureter, unspecified (principal); D69.6 Thrombocytopenia, unspecified
CPT/HCPCS: 36415; 81001; 81599; 82565; 84520; 85025; 86038

== ENCOUNTER 2022-11-11 08:22 | Outpatient (CLI) | payer MEDICARE ==
[2022-11-11 08:57] LABS: CALCIUM 9.3 mg/dL (8.5-10.3); CREATININE 1.4 mg/dL (0.6-1.2); POTASSIUM 3.7 mmol/L (3.5-5.0)
== END 2022-11-11 08:23 | disposition home or self-care (01) ==
LOC: LAB 08:22
PROVIDERS: ATTEND Physician Assistant
DX: N17.9 Acute kidney failure, unspecified (principal)
CPT/HCPCS: 36415; 80048; 81599; 82570; 84300

== ENCOUNTER 2022-11-21 16:42 | Outpatient (CLI) | payer MEDICARE ==
[2022-11-21 17:09] LABS: CALCIUM 11.7 mg/dL (8.5-10.3); CREATININE 1.1 mg/dL (0.6-1.2); POTASSIUM 4.1 mmol/L (3.5-5.0)
[2022-11-21 17:56] LABS: CREATININE,URINE 156.1 mg/dL
--- NOTE | 2022-11-22 08:40 | Ultrasound Report ---
PROCEDURE: Retroperitoneal INDICATIONS: KIDNEY INJURY, ELEVATED CR TECHNIQUE: Real-time scanning was performed of the retroperitoneal organs, with image documentation. COMPARISON: MRI of lumbar spine dated 01/11/2022, ultrasound of abdomen dated 12/08/2020. FINDINGS: Kidneys: Kidneys are normal in size. Right kidney measures 11.9 cm long; left kidney measures 10.3 cm long. Right renal cortical thickness is 1.9 cm; left renal cortical thickness is 1.7 cm. No santino d masses, hydronephrosis, or nephrolithiasis. Bladder: Pre-void bladder volume is 137.9 mL. Post-void residual is 101.6 mL. Pre-void images demo nstrate no intraluminal masses or stones. On pre-void images, no ureteral jets are noted with color Doppler interrogation. (Of note, ureteral jets may not be detectable in up to 25% of cases due to in sufficient differences in specific gravity between ureteral and bladder urine). Prostate gland measu res 4.6 x 3.4 x 4.7 cm in size and show mild mass effect on floor of urinary bladder. Miscellaneous: No free abdominal fluid. IMPRESSION: 1. No gross abnormality is seen in bilateral kidneys. No hydronephrosis or solid appearing renal lesi on. No perinephric fluid collection. 2. Moderate to large amount of postvoid residual. No discrete bladder wall mass or significant bladde r wall thickening. Enlarged prostate gland with mild mass effect on floor of urinary bladder. Reviewed by: Yusuf Covarrubias MD on 11/22/2022 8:39 AM PST Approved by: Yusuf Covarrubias MD on 11/22/2022 8:39 AM PST Station ID: [id number]
== END 2022-11-21 16:43 | disposition home or self-care (01) ==
LOC: DI 16:42
PROVIDERS: ATTEND Physician Assistant
DX: N17.9 Acute kidney failure, unspecified (principal); R79.89 Other specified abnormal findings of blood chemistry; N40.0 Benign prostatic hyperplasia without lower urinary tract symptoms
CPT/HCPCS: 36415; 80048; 82570; 84300

== ENCOUNTER 2023-01-11 07:50 | Outpatient (CLI) | payer MEDICARE ==
[2023-01-11 08:12] LABS: CALCIUM 9.2 mg/dL (8.5-10.3); CREATININE 1.1 mg/dL (0.6-1.2); POTASSIUM 3.7 mmol/L (3.5-5.0)
[2023-01-11 08:21] LABS: CREATININE,URINE 153.2 mg/dL; PROTEIN/CREATININE RATIO,URINE 0.1 (<=0.2)
[2023-01-12 03:10] LABS: COMPLEMENT C3 132 mg/dL (82-167); COMPLEMENT C4 23 mg/dL (12-38)
== END 2023-01-11 07:51 | disposition home or self-care (01) ==
LOC: DI 07:50
PROVIDERS: ATTEND Physician Assistant
DX: R60.0 Localized edema (principal); R06.09 Other forms of dyspnea; I34.0 Nonrheumatic mitral (valve) insufficiency; I51.7 Cardiomegaly; N05.9 Unspecified nephritic syndrome with unspecified morphologic changes; E11.9 Type 2 diabetes mellitus without complications; D89.89 Other specified disorders involving the immune mechanism, not elsewhere classified; R80.9 Proteinuria, unspecified; I77.819 Aortic ectasia, unspecified site
CPT/HCPCS: 36415; 80048; 82570; 84156; 86160; 93306

== ENCOUNTER 2023-03-01 08:36 | Outpatient (CLI) | payer MEDICARE ==
[2023-03-01 09:03] LABS: BASOPHILS % (AUTO) 0.6 %; EOSINOPHILS # (AUTO) 0.1 10^3/uL (0.0-0.7); EOSINOPHILS % (AUTO) 2.5 %; HCT - HEMATOCRIT 38.4 % (42.0-52.0); HGB - HEMOGLOBIN 13.2 g/dL (14.0-18.0); LYMPHOCYTES # (AUTO) 1.3 10^3/uL (1.5-3.5); LYMPHOCYTES % (AUTO) 27.7 %; MEAN CORPUSCULAR HEMOGLOBIN 32.4 pg (27.0-31.0); MEAN CORPUSCULAR HGB CONC 34.4 g/dL (32.0-36.0); MEAN CORPUSCULAR VOLUME 94.3 fL (80.0-94.0); MEAN PLATELET VOLUME 9.1 fL (7.4-11.4); MONOCYTES # (AUTO) 0.5 10^3/uL (0.0-1.0); NEUTROPHILS # (AUTO) 2.8 10^3/uL (1.5-6.6); PLT - PLATELET COUNT 144 10^3/uL (130-450); RED BLOOD COUNT 4.07 10^6/uL (4.70-6.10); RED CELL DISTRIBUTION WIDTH 12.2 % (12.0-15.0); WHITE BLOOD COUNT 4.8 x10^3/uL (4.8-10.8)
[2023-03-01 09:16] LABS: ALBUMIN 4.1 g/dL (3.2-5.5); ALBUMIN/GLOBULIN RATIO 1.2 (1.0-2.2); ALKALINE PHOSPHATASE 61 IU/L (42-121); ALT ALANINE AMINOTRANSFERASE < 10 IU/L (10-60); AST ASPARTATE AMINOTRANSFERASE 25 IU/L (10-42); BILIRUBIN,TOTAL 1.1 mg/dL (0.2-1.0); BUN - BLOOD UREA NITROGEN 11 mg/dL (6-20); CALCIUM 9.9 mg/dL (8.5-10.3); CARBON DIOXIDE - CO2 28 mmol/L (21-32); CHLORIDE 104 mmol/L (101-111); CREATININE 0.9 mg/dL (0.6-1.2); GFR - MDRD 85 (>89); GLUCOSE 121 mg/dL (70-100); POTASSIUM 4.1 mmol/L (3.5-5.0); SODIUM 139 mmol/L (135-145); TOTAL PROTEIN 7.4 g/dL (6.7-8.2)
[2023-03-01 10:01] LABS: FOLLICLE STIMULATING HORMONE 3.34 mIU/mL
[2023-03-01 10:02] LABS: LUTEINIZING HORMONE 1.29 mIU/mL
--- NOTE | 2023-03-01 11:31 | XRAY Report ---
PROCEDURE: Chest 2 View X-Ray INDICATIONS: SOB TECHNIQUE: 2 views of the chest were acquired. COMPARISON: None. FINDINGS: Surgical changes and devices: None. Lungs and pleura: No pleural effusions or pneumothorax. Lungs are clear. Mediastinum: Mediastinal contours appear normal. Heart size is normal. Bones and chest wall: No suspicious bony lesions. Overlying soft tissues appear unremarkable. IMPRESSION: No acute cardiopulmonary process. Reviewed by: Faustino Quintero on 03/01/2023 11:30 AM PDT Approved by: Faustino Quintero on 03/01/2023 11:30 AM PDT Station ID: [id number]
[2023-03-01 13:55] LABS: ESTIMATED AVERAGE GLUCOSE 111 mg/dL (70-100); HEMOGLOBIN A1c% 5.5 % (4.27-6.07)
[2023-03-02 18:07] LABS: FREE TESTOSTERONE(DIRECT) 2.2 pg/mL (6.6-18.1)
== END 2023-03-01 08:37 | disposition home or self-care (01) ==
LOC: DI 08:36
PROVIDERS: ATTEND Physician Assistant
DX: R06.02 Shortness of breath (principal); R74.8 Abnormal levels of other serum enzymes; E29.1 Testicular hypofunction; R73.01 Impaired fasting glucose; D64.9 Anemia, unspecified
CPT/HCPCS: 36415; 80053; 83001; 83002; 83036; 84402; 84403; 85025

== ENCOUNTER 2023-03-06 07:57 | Outpatient (CLI) | payer MEDICARE ==
[2023-03-06 08:34] LABS: % IRON SATURATION 23 % (20-50); IRON 86 ug/dL (45-182); TOTAL IRON BINDING CAPACITY 378 ug/dL (250-450); TRANSFERRIN 270 mg/dL (180-329)
[2023-03-06 08:46] LABS: THYROID STIMULATING HORMONE 2.48 uIU/mL (0.34-5.60)
[2023-03-06 08:48] LABS: FREE T4 (FREE THYROXINE) 0.87 ng/dL (0.58-1.64)
[2023-03-06 08:52] LABS: PROLACTIN 5.31 ng/mL
== END 2023-03-06 07:58 | disposition home or self-care (01) ==
LOC: LAB 07:57
PROVIDERS: ATTEND Physician Assistant
DX: E29.1 Testicular hypofunction (principal)
CPT/HCPCS: 36415; 82533; 83540; 84146; 84402; 84403; 84439; 84443; 84466

== ENCOUNTER 2023-04-07 02:56 | Outpatient (CLI) | payer MEDICARE | END 2023-04-07 23:59 | disposition critical access hospital (66) | LOC: EMS 02:56 | DX: R53.1 Weakness (principal); R11.0 Nausea; R42 Dizziness and giddiness | CPT/HCPCS: A0425; A0427 ==

== ENCOUNTER 2023-04-07 07:08 | Inpatient (IN) | payer MEDICARE ==
[2023-04-07] MEDS ORDERED: SODIUM CHLORIDE 0.9% 1,000 ML IV STA (07:19)
--- NOTE | 2023-04-07 07:23 | ED Physician Documentation ---
PD HPI FOCAL NEURO - Stated complaint Stated Complaint: L ARM/LEG WEAKNESS - Chief complaint Chief Complaint: Neuro - History obtained from History obtained from: Patient, EMS - Additional information Additional information: Patient is a 63-year-old male presenting for evaluation of dizziness, nausea, left-sided weakness. Patient reported that he went to bed last night at 10 PM Without any issues. When he woke up this morning he felt very dizzy and unsteady and had difficulty walking to the bathroom. He also reported numbness to the left side of his body and difficulty in moving the left arm and leg. He denies any prior history of known strokes or any prior deficits. He does use a cane to walk at baseline. He does not take a blood thinner. He denies a headache, Chest pain, difficulty breathing. He did receive 4 mg of IV Zofran from EMS. Per who is at the bedside, patient does not have any baseline weakness on the left side. She states that they have noted some periods of confusion over the past month and has been working with his PCP regarding this. Review of Systems Constitutional: denies: Fever Cardiac: denies: Chest pain / pressure Respiratory: denies: Dyspnea GI: reports: Nausea. denies: Abdominal Pain Neurologic: reports: Focal weakness, Numbness. denies: Headache PD PAST MEDICAL HISTORY - Past Medical History Cardiovascular: Hypertension, High cholesterol Respiratory: None Neuro: Peripheral neuropathy Endocrine/Autoimmune: None GI: GERD : None HEENT: None Psych: None Musculoskeletal: Chronic back pain Derm: None - Past Surgical History Past Surgical History: Yes Ortho: Shoulder arthroplasty, Spine surgery - Present Medications Home Medications: Ambulatory Orders Medication Instructions Recorded Confirmed Gabapentin 600 mg ORAL TID 11/01/16 04/07/23 Losartan [Cozaar] 100 mg ORAL DAILY 11/01/16 04/07/23 Tamsulosin [Flomax] 0.4 mg ORAL DAILY 11/01/16 04/07/23 oxyCODONE [Roxicodone] 5 mg ORAL BID PRN 11/01/16 04/07/23 Albuterol Sulfate [Proair 90 mcg IH PRN PRN 04/07/23 04/07/23 Respiclick] Aspirin [Vazalore] 81 mg PO DAILY 04/07/23 04/07/23 Atorvastatin Calcium 40 mg PO DAILY 04/07/23 04/07/23 Buprenorphine 1 applic TD DAILY 04/07/23 04/07/23 Carbidopa/Levodopa [Carbidopa-Levo 1 each PO QPM PRN 04/07/23 04/07/23 ER 25-100 Tab] DULoxetine [Cymbalta] 20 mg PO DAILY 04/07/23 04/07/23 Metoprolol Succinate [Toprol Xl] 25 mg PO BID 04/07/23 04/07/23 Nortriptyline [Pamelor] 25 mg PO 0800,1400 04/07/23 04/07/23 Nortriptyline [Pamelor] 75 mg PO HS 04/07/23 04/07/23 Omeprazole Magnesium 20 mg PO DAILY 04/07/23 04/07/23 Testosterone [Androgel] 5 gm TD DAILY 04/07/23 04/07/23 - Allergies Allergies/Adverse Reactions: Allergies Allergy/AdvReac Type Severity Reaction Status Date / Time Penicillins Allergy Hives Verified 07/29/19 12:02 - Social History Does the pt smoke?: No Smoking Status: Never smoker Does the pt drink ETOH?: Yes Does the pt have substance abuse?: No - Immunizations Immunizations are current?: Yes - POLST Patient has POLST: No PD ED PE NORMAL - General General: Alert and oriented X 3, Well developed/nourished - HEENT HEENT: Atraumatic, PERRL, EOMI, Moist mucous membranes, Pharynx benign - Neck Neck: Supple, no meningeal sign - Cardiac Cardiac: RRR, No murmur - Respiratory Respiratory: No respiratory distress, Clear bilaterally - Abdomen Abdomen: Soft, Non tender - Derm Derm: Warm and dry - Extremities Extremities: Other (Distal pulses intact) - Neuro Neuro: Alert and oriented X 3, texture artist 2-12 intact, Normal speech. No: No motor deficit, No sensory deficit NIHSS - Level of Consciousness Level of consciousness: (0) Alert, Keenly responsive LOC Questions: (0) Answers both Q's correct LOC Commands: (0) Performs both correctly - Gaze Best Gaze: (0) Normal - Visual Visual: (0) No loss - Facial Palsy Facial Palsy: (0) Normal, symmetrical movement - Motor Arms (both separate) Motor Arm (right): (0) No drift Motor Arm (left): (1) Drift - Motor Legs (both separate) Motor Leg (right): (0) No drift Motor Leg (left): (3) No effort against gravity - Limb Ataxia Limb Ataxia: (1) Present in 1 limb - Sensory Sensory: (1) Ykwx-or-bvqyyerw loss - Best Language Best Language: (0) No aphasia - Dysarthria Dysarthria: (0) Normal - Extinction and Inattention (formally neg Extinction and inattention: (0) No abnormality - Total Score/Results Total Score/Result: 6 Results - Vitals Vitals: Vital Signs - 24 hr 04/07/23 04/07/23 04/07/23 07:11 07:53 09:00 Temperature 36.4 C L Heart Rate 91 86 83 Respiratory 16 16 13 Rate Blood Pressure 142/78 H 164/77 H 176/100 H O2 Saturation 92 95 98 If not protocol 4 4 : Oxygen Flow, liters/minute 04/07/23 04/07/23 10:00 11:00 Temperature 36.4 C L Heart Rate 83 75 Respiratory 13 15 Rate Blood Pressure 160/92 H 185/96 H O2 Saturation 97 97 If not protocol 2 2 : Oxygen Flow, liters/minute Oxygen O2 Source Nasal cannula - EKG (time done) 0712 EKG releavant findings:: EKG personally interpreted by author of this note. Relevant findings are: Rate 88, normal sinus rhythm, QTc 507 Rate: Rate (enter#) (88) Rhythm: NSR Intervals: Other (QTc 507) Ischemia: No: ST elevation c/w ischemia - Labs Labs: Laboratory Tests 04/07/23 04/07/23 04/07/23 07:20 07:20 07:20 WBC 3.5 L RBC 4.31 L Hgb 13.7 L Hct 39.6 L MCV 91.9 MCH 31.8 H MCHC 34.6 RDW 12.6 Plt Count 103 L MPV 9.0 Neut # (Auto) 1.8 Lymph # (Auto) 1.2 L Potter # (Auto) 0.3 Eos # (Auto) 0.1 Baso # (Auto) 0.0 Absolute Nucleated RBC 0.00 Nucleated RBC % 0.0 PT 12.4 INR 1.1 Sodium 138 Potassium 2.8 L Chloride 104 Carbon Dioxide 23 Anion Gap 11.0 BUN 9 Creatinine 0.8 Estimated GFR (MDRD) 97 Glucose 163 H Calcium 9.9 Total Bilirubin 0.9 AST 29 ALT < 10 L Alkaline Phosphatase 64 Total Protein 7.3 Albumin 3.8 Globulin 3.5 Albumin/Globulin Ratio 1.1 Lipase 24 PD Medical Decision Making - ED course Complexity details: reviewed results, re-evaluated patient, d/w patient ED course: 743 D/ Dr. Mcnally (tele stroke). He will evaluate and look for large vessel occlusion. Agrees that the patient is outside of the tPA window. 0752 - Dr. Mcnally has reviewed the images. He sees a narrowed basilar artery bu t no large vessel occlusion and does not feel that the patient is a candidate for mechanical thrombectomy. He recommends a full dose aspirin, MRI, PT OT, high-dose statin, permissive hypertension and usual stroke care. Patient presenting for evaluation of dizziness, Nausea,And left-sided weakness. He is outside of the window for TNK.CT head which I reviewed is negative for bleed. I did consult with telestroke as patient would be within the window for a thrombectomy if there is a large vessel occlusion. No LVO seen on CT angios. Patient remains symptomatic.Plan for admission for stroke work-up. Patient was given aspirin.EKG demonstrates a normal sinus rhythm. CBC and chemistries were reviewed. Potassium is 2.8 which was replaced with IV medication. Consulted with Dr. Alfaro who admit the patient for further management. Departure - Departure Disposition: 66 [facility] DC/Xfer Clinical Impression: Hypokalemia Cerebrovascular accident (CVA) Qualifiers: CVA mechanism: thrombosis Laterality of affected vessel: right Condition: Fair Discharge Date/Time: 04/07/23 13:07
[2023-04-07 07:34] LABS: INR 1.1 (0.8-1.2); PT - PROTHROMBIN TIME 12.4 secs (9.9-12.6)
[2023-04-07] MEDS ORDERED: iohexoL-300 100 ML VIAL IVP ONE (07:40)
[2023-04-07 07:42] LABS: BASOPHILS % (AUTO) 0.9 %; EOSINOPHILS # (AUTO) 0.1 10^3/uL (0.0-0.7); EOSINOPHILS % (AUTO) 1.7 %; HCT - HEMATOCRIT 39.6 % (42.0-52.0); HGB - HEMOGLOBIN 13.7 g/dL (14.0-18.0); LYMPHOCYTES # (AUTO) 1.2 10^3/uL (1.5-3.5); LYMPHOCYTES % (AUTO) 34.2 %; MEAN CORPUSCULAR HEMOGLOBIN 31.8 pg (27.0-31.0); MEAN CORPUSCULAR HGB CONC 34.6 g/dL (32.0-36.0); MEAN CORPUSCULAR VOLUME 91.9 fL (80.0-94.0); MONOCYTES # (AUTO) 0.3 10^3/uL (0.0-1.0); MONOCYTES % (AUTO) 9.9 %; NEUTROPHILS # (AUTO) 1.8 10^3/uL (1.5-6.6); NEUTROPHILS % (AUTO) 52.7 %; PLT - PLATELET COUNT 103 10^3/uL (130-450); RED BLOOD COUNT 4.31 10^6/uL (4.70-6.10); RED CELL DISTRIBUTION WIDTH 12.6 % (12.0-15.0); WHITE BLOOD COUNT 3.5 x10^3/uL (4.8-10.8)
[2023-04-07 07:45] LABS: ALBUMIN 3.8 g/dL (3.2-5.5); ALBUMIN/GLOBULIN RATIO 1.1 (1.0-2.2); ALKALINE PHOSPHATASE 64 IU/L (42-121); ALT ALANINE AMINOTRANSFERASE < 10 IU/L (10-60); AST ASPARTATE AMINOTRANSFERASE 29 IU/L (10-42); BILIRUBIN,TOTAL 0.9 mg/dL (0.2-1.0); BUN - BLOOD UREA NITROGEN 9 mg/dL (6-20); CALCIUM 9.9 mg/dL (8.5-10.3); CARBON DIOXIDE - CO2 23 mmol/L (21-32); CHLORIDE 104 mmol/L (101-111); CREATININE 0.8 mg/dL (0.6-1.2); GFR - MDRD 97 (>89); GLUCOSE 163 mg/dL (70-100); LIPASE 24 U/L (22-51); POTASSIUM 2.8 mmol/L (3.5-5.0); SODIUM 138 mmol/L (135-145); TOTAL PROTEIN 7.3 g/dL (6.7-8.2)
[2023-04-07] MEDS ORDERED: ASPIRIN 325 MG TABLET PO STA ×2 (07:57→08:10)
--- NOTE | 2023-04-07 08:08 | CT Report ---
PROCEDURE: ANGIO HEAD W/WO INDICATIONS: L sided weakness/last normal 10pm CONTRAST: 80ml omni 300 TECHNIQUE: Precontrast 4.5 mm thick angled axial sections acquired from the foramen magnum to the vertex. Afte r the administration of intravenous contrast, 1 mm thick sections acquired through the [place] of [place] is. Postcontrast 4.5 mm thick sections then re-acquired from the foramen magnum to the vertex. 3-di mensional nzvtzqr-biwevxpia-sgdxeemwut (MIP) and/or volume rendering reformats were acquired of the c entral intracranial vasculature. For radiation dose reduction, the following was used: automated ex posure control, adjustment of mA and/or kV according to patient size. COMPARISON: None. FINDINGS: Image quality: Excellent. Anterior circulation: Intracranial internal carotid arteries are normal in size and flow. The flow within the paired anterior cerebral arteries is normal and symmetric. The flow within the middle cer ebral arteries is normal and symmetric. The anterior communicating artery is seen. No aneurysms are seen. Posterior circulation: Visualized portions of the vertebral arteries demonstrate normal caliber, and join to form a normal appearing basilar artery. Flow within the posterior cerebral arteries is norm al and symmetric. No aneurysms are seen. CSF spaces: Ventricles are normal in size and shape. Basal cisterns are patent. No extra-axial flu id collections. Brain: There is an old or late subacute lacunar infarct in the right basal ganglia. No midline shift . No intracranial bleeds or masses. Das-white matter interface appears intact. Mild cerebral volu me loss and periventricular matter chronic small vessel ischemic changes are present. Skull and face: Calvarium and facial bones appear intact, without suspicious lesions. Sinuses: Visualized sinuses and mastoids are clear. IMPRESSION: 1. No acute intracranial abnormality. 2. Old or late subacute lacunar infarct in the right basal ganglia. 3. No high-grade stenosis in anterior or posterior circulations. Reviewed by: Odalys Monroe MD on 04/07/2023 8:06 AM PDT Approved by: Odalys Monroe MD on 04/07/2023 8:06 AM PDT Station ID: [id number]
[2023-04-07] MEDS ORDERED: POTASSIUM CHLORIDE INJ 40 MEQ in SODIUM CHLORIDE 0.9% 500 ML IV ONE (08:11)
--- NOTE | 2023-04-07 08:13 | XRAY Report ---
PROCEDURE: Chest 1 View X-Ray INDICATIONS: stroke TECHNIQUE: One view of the chest was acquired. COMPARISON: 03/01/2023. FINDINGS: Surgical changes and devices: None. Lungs and pleura: No pleural effusions or pneumothorax. Lungs are clear. Mediastinum: Mediastinal contours appear normal. Heart size is normal. Bones and chest wall: No suspicious bony lesions. Overlying soft tissues appear unremarkable. IMPRESSION: No acute cardiopulmonary process. Reviewed by: Jonh Flores MD on 04/07/2023 8:11 AM PDT Approved by: Jonh Flores MD on 04/07/2023 8:11 AM PDT Station ID: [id number]
--- NOTE | 2023-04-07 08:14 | CT Report ---
PROCEDURE: ANGIO NECK W INDICATIONS: L sided weakness CONTRAST: 80ml omni 300 TECHNIQUE: After the administration of intravenous contrast, 1.5 mm axial sections acquired from the aortic arch to the [place] of [place]. Coronal 3-D maximum intensity projection (MIP) and/or volume rendering ref ormats were then performed. For radiation dose reduction, the following was used: automated exposur e control, adjustment of mA and/or kV according to patient size. COMPARISON: CT head angiogram, 04/07/2023. FINDINGS: Image quality: Excellent. Carotid system: The great vessels demonstrate a conventional anatomy as they arise from the aortic a rch. The origins of the common carotid arteries appear patent. The common carotid arteries demonstr ate normal calibers and courses. Calcified plaques at the carotid bifurcations bilaterally. The inte rnal carotid arteries demonstrate normal caliber and course. Posterior circulation: The origins of the vertebral arteries appear patent. The more superior porti ons of the vertebral arteries demonstrate normal course and caliber. They join to form a normal appe aring basilar artery. Soft tissues: Visualized neck soft tissues demonstrate no suspicious abnormalities. The thyroid is normal in size and there are no incidental findings. Bones: No suspicious bony lesions. Visualized cervical spine appears normally aligned. Moderate de generative changes in cervical spine. IMPRESSION: 1. No occlusion or high-grade stenosis in carotid arteries or vertebral arteries. The estimate of stenosis included in the report of the imaging study was calculated using the NASCET method CLINICAL RECOMMENDATION STATEMENTS: In patients <35 years with an ITN detected on CT, MRI, or extrathyroidal ultrasound, the Committee re commends further evaluation with dedicated thyroid ultrasound if the nodule is "e1 cm and has no susp icious imaging features, and if the patient has normal life expectancy. In patients "e35 years with an ITN detected on CT, MRI, or extrathyroidal ultrasound, the Committee r ecommends further evaluation with dedicated thyroid ultrasound if the nodule is "e1.5 cm and has no s uspicious imaging features, and if the patient has normal life expectancy. (ACR, 2014) Reviewed by: Odalys Monroe MD on 04/07/2023 8:12 AM PDT Approved by: Odalys Monroe MD on 04/07/2023 8:12 AM PDT Station ID: [id number]
[2023-04-07] MEDS ORDERED: ATORVASTATIN 40 MG TABLET PO STA (08:37)
[2023-04-07] MEDS ORDERED: iohexoL-300 100 ML VIAL ONE (10:25)
[2023-04-07] MEDS ORDERED: SODIUM CHLORIDE FLUSH 0.9% 10 ML SYRINGE IVP PRN (11:04)
[2023-04-07] MEDS ORDERED: oxyCODONE 5 MG TABLET PO PRN (11:04)
[2023-04-07] MEDS ORDERED: ONDANSETRON 4 MG/2 ML VIAL IVP PRN (11:04)
[2023-04-07] MEDS ORDERED: ACETAMINOPHEN 325 MG TABLET PO PRN (11:04)
[2023-04-07] MEDS ORDERED: ONDANSETRON ODT 4 MG TABLET TL PRN (11:04)
--- NOTE | 2023-04-07 11:13 | HISTORY & PHYSICAL EXAMINATION ---
Chief Complaint - Chief Complaint Chief Complaint: dizzy, confused, L body weak History of Present Illness - Admitted From Admitted From:: home - History Obtained From Records Reviewed: [facility] History obtained from: Dr. Tapia Exam Limitations: none - History of Present Illness HPI Comment/Other: 63-year-old white male whose risk factors for stroke include male sex, hypertension, fasting hyperglycemia, hyperlipidemia but no history of smoking. He is also on hormone replacement therapy with AndroGel. He has chronic mobility issues and cannot walk more than 200 feet without stopping to rest. He is on a chronic opioid program of oxycodone 1 tablet twice a day. His last known normal was last night when he went to bed at 10 PM. When he woke up this morning he was dizzy, nauseated, and his left body had numbness and paresthesias as well as weakness. He was unsteady as he walked to the bathroom. He does use a cane at home. reports that he has been confused over the last month and they have been seeing his primary care provider, ABIEL Ray) for this. His blood pressure was 142/78. He was afebrile. 92% on room air. Physical exam had an NIH score of 6. He is cerebellar on exam, pale, nauseated and does have left body weakness. Strength is definitely impacted on his left leg. The CT angiogram has open arteries in the neck and head. However the CT of the head has an old or late subacute right basal ganglia stroke. The emergency room provider and I discussed this case. This patient presents as a stroke with all the risk factors that would lead to a stroke being present. I decided to make this patient inpatient as opposed to observation since his paralysis seems to be moderately severe and he will need more than an observation stay to be treated by physical therapy and Occupational Therapy. History - Past Medical History Cardiovascular: reports: Congestive heart failure (Class II hx. Edema 11/2022. Nml LV, Dilated RV. LVEF 55-50%, R nml. Mild MR, Dilated aorta 4.1 cm), Hypertension, High cholesterol (on statin), Angina, Other (L flank pain, ETT abnml 11/2021 fixed inf wall w sm anterolat isch, nml EF, CT angio score high, cath 05/2022) Respiratory: reports: Shortness of breath (He is scheduled to see a general sales manager and get PFTs in the next couple of weeks) Neuro: reports: Peripheral neuropathy (due to back), Other (Restless leg) Endocrine/Autoimmune: reports: Other (Impaired fasting glucose) GI: reports: GERD, Hepatitis (C) : reports: Benign prostate hypertrophy (On tamsulosin), Renal insuffiency (acute. on mult NSAIDs. US neg for obstr. Saw Nephr 12/2022), Other (Erectile dysfunction with low testosterone, using AndroGel) HEENT: reports: Other (Chronic coarseness) Psych: reports: Depression, Anxiety Musculoskeletal: reports: Osteoarthritis (anklylosing spondylitis w 3 surgeries, See Sarah LIMA ), Chronic back pain (With a spinal stimulator in place) Derm: reports: None MRSA Hx?: No Other Past Medical History: Chronic pain syndrome. Narcotic for some time and up to 80+ milligrams OxyContin. Tapered down and spinal stimulator placed just before coming off narcotics. Suboxone causes hallucinations. Allowed oxycodone bid but he hasn't needed it lately. chronic anemia - Past Surgical History General: reports: Colonoscopy (2017, due for 1), Other (umbilical Hernia repair) Ortho: reports: Shoulder arthroplasty, Spine surgery (laminec, fusion L4-5, L3- 4, multiple FRANSISCA) - Family & Social History Family History Comment/Other: Mom had breast cancer with mets, HTN and in her 60s. Dad had HTN, some mild memory loss and in his 90s. Brother w HTN, alcohol abuse and cirrhosis. son from leukemia age 31, 2 daughters are healthy Living arrangement: At home Living Situation: With spouse/s.o. Social History Notes: Disabled from work related injury. 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 to second . Had 3 kids w first , 2 children brought in from second marriage. Former smoker. 2 packs/day for 22 years. Quit 1984. No histo ry of alcohol or recreational substance abuse. Just had 's son and his family [place] [facility] [place]. - Substance History Use: Uses substance without health or social issues: NONE - POLST Patient has POLST: No POLST Status: Full Code Meds/Allgy - Home Medications Home Medications: Ambulatory Orders Medication Instructions Recorded Confirmed Gabapentin 600 mg ORAL TID 11/01/16 04/07/23 Losartan [Cozaar] 100 mg ORAL DAILY 11/01/16 04/07/23 Tamsulosin [Flomax] 0.4 mg ORAL DAILY 11/01/16 04/07/23 oxyCODONE [Roxicodone] 5 mg ORAL BID PRN 11/01/16 04/07/23 Albuterol Sulfate [Proair 90 mcg IH PRN PRN 04/07/23 04/07/23 Respiclick] Aspirin [Vazalore] 81 mg PO DAILY 04/07/23 04/07/23 Atorvastatin Calcium 40 mg PO DAILY 04/07/23 04/07/23 Buprenorphine 1 applic TD DAILY 04/07/23 04/07/23 Carbidopa/Levodopa [Carbidopa-Levo 1 each PO QPM PRN 04/07/23 04/07/23 ER 25-100 Tab] DULoxetine [Cymbalta] 20 mg PO DAILY 04/07/23 04/07/23 Metoprolol Succinate [Toprol Xl] 25 mg PO BID 04/07/23 04/07/23 Nortriptyline [Pamelor] 25 mg PO 0800,1400 04/07/23 04/07/23 Nortriptyline [Pamelor] 75 mg PO HS 04/07/23 04/07/23 Omeprazole Magnesium 20 mg PO DAILY 04/07/23 04/07/23 Testosterone [Androgel] 5 gm TD DAILY 04/07/23 04/07/23 - Allergies Allergies/Adverse Reactions: Allergies Allergy/AdvReac Type Severity Reaction Status Date / Time Penicillins Allergy Hives Verified 07/29/19 12:02 Review of Systems - Constitutional Constitutional: reports: Poor appetite (Chronic) - Eyes Eyes: denies: Pain, Irritation, Amaurosis, Blurred vision - Ears, Nose & Throat Ears, Nose & Throat: reports: Tinnitus (Chronic), Sore throat, Hoarseness (Chronic) - Cardiovascular Cariovascular: reports: Palpitations, Chest pain, Edema (Poor circulation times months) - Respiratory Respiratory: reports: Snoring, SOB with exertion, Other (Chronic hoarseness for decades). denies: Cough, Sputum production, Wheezing - Gastrointestinal Gastrointestinal: reports: Abdominal pain, Abdominal distention, Constipation, Diarrhea (GI symptoms are chronic, not new), Poor appetite, Other (Chronic problems with swallowing for years) - Genitourinary Genitourinary: denies: Dysuria, Frequency, Urgency, Hematuria - Musculoskeletal Musculoskeletal: reports: Back pain (Chronic with thoracal lumbar radiculopathy) - Integumentary Integumentary: reports: Pruritis, Lesions - Neurological Neurological: reports: Focal weakness, Memory problems, Pre-existing deficit (Neuropathy with near foot drop). denies: Headache, Dizziness - Psychiatric Psychiatric: reports: Depression, Anxiety. denies: Suicidal, Delusions - Endocrine Endocrine: denies: Polyuria, Polydypsia, Polyphagia - Hematologic/Lymphatic Hematologic/Lymphatic: denies: Anemia, Bruising, Petechiae, Blood clots Exam - Vital Signs Reviewed Vital Signs: Yes Vital Signs: Vital Signs x48h Temp Pulse Resp BP Pulse Ox O2 Flow Rate 04/07/23 10:00 83 13 160/92 H 97 2 04/07/23 09:00 83 13 176/100 H 98 4 04/07/23 07:53 86 16 164/77 H 95 4 04/07/23 07:11 36.4 C L 91 16 142/78 H 92 - Physical Exam General Appearance: positive: No acute distress, Alert, Other (Overweight, middle-aged male with mustache, male pattern balding. Very genial personality. and daughter in the room to help him with history since he tends to be a little forgetful now) Eyes Bilateral: positive: PERRL, EOMI ENT: positive: No signs of dehydration, Other (Hoarse voice and occasional clearing of throat) Neck: positive: No JVD Respiratory: positive: No respiratory distress, Other (Wide AP diameter chest). negative: Wheezes, Rales, Rhonchi Cardiovascular: positive: Regular rate & rhythm Peripheral Pulses: positive: 1+ Abdomen: positive: Non-tender, No organomegaly, Nml bowel sounds, No distention, Other (Large, obese pannus) Skin: positive: Warm, Dry, Other (2-1/2 cm elongated marjolin ulcer along the right nasolabial fold above his mustache and almost adjacent to the nares on the right side of his face) Extremities: positive: Pedal edema (Trace around the ankles and feet. He is wearing DARSHANA hose). negative: Full ROM (He cannot plantar and dorsiflex at the ankles because of mobility issues that are chronic. Not because of his current diagnosis.) Neurologic/Psychiatric: positive: Oriented x3, CN's nml (2-12), Motor nml (He can flex and extend his leg at the knee with 4+ out of 5 strength bilaterally. Plantar and dorsiflexion of the feet limited because of stiffness at the ankle. Flexion and extension at the hip is also intact and symmetrical bilaterally. Arm strength with flexion extension at the elbow, wrist.). negative: Facial droop Conclusion/Plan - Problem List (1) Cerebrovascular accident (CVA) Conclusion/Plan: This gentleman has multiple risk factors for ischemic or thrombotic stroke. He does not have a history of atrial fibrillation and his current EKG is sinus so I do not suspect embolic stroke. He does take AndroGel and indirectly increase your risk of stroke by increasing your blood pressure. I had seen him in the emergency room when he had a definite left leg weakness. I then we saw him this afternoon as well as completing this history and physical. His left leg weakness has completely resolved. He no longer feels numbness, paresthesias. He is willing to stay overnight. But he does not want to stay 48 to 72 hours if he is going to be this good. Plan: Inpatient stay Was ordered on admission.He is recovering much more quickly than I expected, and I will reassess him tomorrow for possible discharge. MRI if able to do with spinal stimulator Lipitor 80 mg daily with first dose already given in the ER I will also order aspirin 81 mg a day with first dose given in ER Physical and Occupational Therapy evaluation and treatment Work with the patient to reduce his risk factors with regards to blood pressure, cholesterol, and borderline glucose. He does not smoke. He does not drink. So those behavior modifications do not do need to be implemented Qualifiers: CVA mechanism: thrombosis Laterality of affected vessel: right (2) Hypertension Conclusion/Plan: Home medication list is losartan 100 mg daily, metoprolol XL 25 mg daily. Permissive hypertension should be allowed for up to 72 hours. Systolic up to 180 is acceptable. Plan: Hydralazine 10 mg IV push 3 times daily as needed systolic greater than 180 In 48 to 72 hours resume his usual meds I will monitor closely for rebound tachycardia and see if I may need to resume the metoprolol sooner Qualifiers: Hypertension type: primary hypertension Qualified Code(s): I10 - Essential (primary) hypertension (3) Hyperlipidemia Conclusion/Plan: He has hyperlipidemia as a diagnosis in his office chart. But is not on a statin. To reduce his risk of progressive atherosclerosis, he would be a candidate to reduce his risk for stroke and heart attack. He has received 80 mg of Lipitor in the ER, will be placed in another 80 mg daily starting tomorrow. I will be checking fasting lipid panel in the morning. He will need to be seen in the outpatient setting with his medications adjusted. Qualifiers: Hyperlipidemia type: pure hypercholesterolemia Qualified Code(s): E78.00 - Pure hypercholesterolemia, unspecified; E78.0 - Pure hypercholesterolemia (4) Chronic pain disorder Conclusion/Plan: Multitude of treatment modalities in the past. Surgical, anesthesia, opioids, anti-inflammatories, Tylenol. This is resulted in reduced mobility. As well as chronic pain. At this time the patient's list has him on buprenorphine, gabapentin, oxycodone 10 mg twice daily. Plan is for me to resume these medications while here. He will also receive physical therapy and Occupational Therapy evaluation and treatment for this problem as well as for his stroke above. (5) Depression with anxiety Conclusion/Plan: Medications at home are Cymbalta, Pamelor. That will be resumed. (6) Hypokalemia Conclusion/Plan: P.o. potassium of 40 mill equivalents will be given to the patient. Recheck potassium tomorrow morning. Supplement as needed. (7) Hyperglycemia Conclusion/Plan: Impaired fasting glucose has been present off and on through the years. 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 The area along his right nasolabial fold never really healed. The lesion, over time became deeper with a central crevice. And then around it is heaped edges. Without doing a biopsy, upon exam, I feel this looks like a marjolin ulcer. He tells me that he has an appointment with a de rmatologist on April 10. He is due to be getting a biopsy. - Lab Results Lab results reviewed: Yes Fish Bones: 04/07/23 07:20 04/07/23 07:20 - Diagnostic Imaging Results Diagnostic Imaging Results: positive: Final report reviewed Diagnostic Imaging Results Comments: Chest x-ray is without acute cardiopulmonary process Neck angiogram has no occlusion or high-grade stenosis in the carotid arteries. Head angiogram and CT has intracranial arteries that are normal in size and flow. The paired anterior cerebral arteries is normal and symmetric. Flow within the middle cerebral arteries is normal and symmetric. Anterior communicating artery seen. Posterior circulation open and normal. He has an old or late subacute lacunar infarct in the right basal ganglia. No midline shift. Mild cerebral volume loss and periventricular matter chronic small vessel ischemic changes present. Core Measures - Anticipated LOS I expect patient to be DC'd or transferred within 96 hours.: Yes - DVT/VTE - Prophylaxis VTE/DVT Device ordered at admit?: Yes
--- NOTE | 2023-04-07 15:58 | MRI Report ---
PROCEDURE: BRAIN WO INDICATIONS: L sided weakness TECHNIQUE: Noncontrast axial T1 spin echo, axial T2 fast spin echo, sagittal and axial FLAIR, coronal T2 fast sp in echo, axial gradient echo, axial diffusion and ADC through the brain. COMPARISON: CTA head and neck dated 04/07/2023 FINDINGS: Image quality: Excellent. CSF Spaces: Basal cisterns are patent. No extra-axial fluid collections. Ventricles are normal in size and shape. Brain: No intracranial masses or hemorrhage. Das/white matter interface is normal. Brainstem appe ars normal. Diffusion-weighted images demonstrate no acute ischemic insult. No chronic ischemic ins ults. Age-related volume loss and age appropriate very mild small vessel ischemic change. Normal int ravascular flow voids are present. Skull and face: Calvarium has normal marrow signal. Orbits appear normal. Sinuses: Sinuses and mastoids are clear. IMPRESSION: No acute intracranial process. Reviewed by: Jonh Flores MD on 04/07/2023 3:57 PM PDT Approved by: Jonh Flores MD on 04/07/2023 3:57 PM PDT Station ID: [id number]
[2023-04-07] MEDS ORDERED: CARBIDOPA/LEVODOPA ER 25 MG/100 MG TABLET PO PRN (18:18)
[2023-04-07] MEDS: SODIUM CHLORIDE FLUSH 0.9% 10 ML SYRINGE IVP SCH (20:59)
[2023-04-07] MEDS: GABAPENTIN 300 MG CAPSULE PO SCH (20:59)
[2023-04-07] MEDS ORDERED: NORTRIPTYLINE 25 MG CAPSULE PO SCH (21:00)
[2023-04-08] MEDS: SODIUM CHLORIDE FLUSH 0.9% 10 ML SYRINGE IVP SCH ×2 (00:12→10:17)
[2023-04-08] MEDS: GABAPENTIN 300 MG CAPSULE PO SCH (05:43)
[2023-04-08 05:44] LABS: CHOL/HDL RATIO 2.2 (<5.0); CHOLESTEROL 106 mg/dL; HDL CHOLESTEROL 48 mg/dL; LDL CHOLESTEROL,CALCULATED 45 mg/dL; LDL/HDL RATIO 0.9 (<3.6); TRIGLYCERIDES 64 mg/dL; VLDL CHOLESTEROL 13 mg/dL
[2023-04-08 07:34] VITALS: BP 156/94
[2023-04-08] MEDS ORDERED: NORTRIPTYLINE 25 MG CAPSULE PO SCH (08:00)
--- NOTE | 2023-04-08 08:18 | Discharge Plan ---
Discharge Plan Problem Reviewed?: Yes Disposition: Home, Self Care Condition: Fair Diet: Cardiac Activity Restrictions: Activity as Tolerated Shower Restrictions: No Driving Restrictions: Yes (no driving) Assistance Devices: Cane Health Concerns: You presented to the hospital after waking up that morning and finding yourself to have weakness on the left side of your body. In the emergency room we definitely identified you as having a very small stroke. By later that afternoon, you had recovered very nicely. Your leg was now moving normally. You no longer had numbness and tingling. We kept you overnight to monitor your blood pressure which stayed stable. We also make sure that your heart rate or rhythm of your heart was normal. Sometimes an irregular heartbeat can cause stroke. Your heartbeat was normal. Your rhythm was normal. Since you have recovered and feel like you are back to normal you would like to go home. This is wonderful. It is very rare to have a patient recover so quickly from a stroke. Plan of Treatment: Treatment for stroke is basically to reduce any risk factors for another one happening. You are at high risk for another one happening. The overall message is : 1. blood pressure must be below 140/90 2. Glucose has to be below 125 every morning. You have borderline diabetes and your glucose was 163 fasting. Please talk to your primary care provider about considering a low-dose medication such as metformin. 3. You cannot smoke. You already do not so you do not have to change your behavior 4. Lose about 10% of your body weight. We know that this is hard considering you have reduced mobility from pain and on-the-job injury history. Try going to the pool in [place] or [place] for nonweightbearing exercises. For your weight that would be losing about 28 pounds. 5. You are already at goal with your cholesterol. On the medicine you take at home, your cholesterol is 106 (goal is <200), bad cholesterol/LDL is 45 (goal is <70). HDL/good chol is hopefully above 45 and you are 48. Part of the work-up for stroke is to have an echocardiogram of the heart. But you had 1 in December of this year. We did not feel the need for you to repeat that. See your primary care provider in follow-up in the next 1 to 2 weeks. You are already on all the medicines we would need you to take for stroke. We will add 1 more. You would take that for the next 21 days. Have your primary care provider evaluate whether you should stay on it or go off of it. The medicine is a platelet inhibitor. It is called Plavix. It works with your aspirin to reduce your risk of stroke Care Goals: To reduce your risk of stroke is much as possible and prolong your life. Assessment: Patient is alert, oriented. Slightly forgetful. Relies on his and daughter for some prompting. But he promises to follow through. No Smoking: If you smoke, Please STOP! Call for help. Follow-up with: Zenaida Olsen PA [Primary Care Provider] -
[2023-04-08 08:33] LABS: CALCIUM 9.7 mg/dL (8.5-10.3); CREATININE 0.8 mg/dL (0.6-1.2); POTASSIUM 3.5 mmol/L (3.5-5.0)
[2023-04-08] MEDS ORDERED: DULoxetine 20 MG CAPSULE PO SCH (09:00)
[2023-04-08] MEDS ORDERED: ASPIRIN EC 81 MG TABLET PO SCH (09:00)
[2023-04-08] MEDS ORDERED: PATIENT OWN CONTROLLED 1 EACH TOP SCH (09:00)
[2023-04-08] MEDS ORDERED: TAMSULOSIN 0.4 MG CAPSULE PO SCH (09:00)
[2023-04-08] MEDS ORDERED: ATORVASTATIN 40 MG TABLET PO SCH (21:00)
--- NOTE | 2023-04-09 08:00 | DISCHARGE SUMMARY ---
Discharge Summary Admit Date: 04/07/23 Discharge Date: 04/08/23 Discharging Provider: Elisabet Alfaro MD Primary Care Provider: ABIEL Ray Code Status: Attempt Resuscitation Condition at Discharge: Fair Discharge Disposition: 01 Home, Self Care - DIAGNOSES Discharge Diagnoses with Status of Each Condition: 1. Stroke 2. Hypertension 3. Hyperlipidemia 4. Chronic pain disorder 5. Anxiety with depression 6. Hypokalemia 7. Hyperglycemia 8. Impaired fasting glucose 9. marjolin ulcer of the nasolabial fold - HPI History of Present Illness: 63-year-old white male whose risk factors for stroke include male sex, hypertension, fasting hyperglycemia, hyperlipidemia but no history of smoking. He is also on hormone replacement therapy with AndroGel. He has chronic mobility issues and cannot walk more than 200 feet without stopping to rest. He is on a chronic opioid program of oxycodone 1 tablet twice a day. His last known normal was last night when he went to bed at 10 PM. When he woke up this morning he was dizzy, nauseated, and his left body had numbness and paresthesias as well as weakness. He was unsteady as he walked to the bathroom. He does use a cane at home. reports that he has been confused over the last month and they have been seeing his primary care provider, ABIEL Ray) for this. His blood pressure was 142/78. He was afebrile. 92% on room air. Physical exam had an NIH score of 6. He is cerebellar on exam, pale, nauseated and does have left body weakness. Strength is definitely impacted on his left leg. The CT angiogram has open arteries in the neck and head. However the CT of the head has an old or late subacute right basal ganglia stroke. The emergency room provider and I discussed this case. This patient presents as a stroke with all the risk factors that would lead to a stroke being present. I decided to make this patient inpatient as opposed to observation since his paralysis seems to be moderately severe and he will need more than an obs ervation stay to be treated by physical therapy and Occupational Therapy. - CONSULTS | PROCEDURES Procedures: Angiogram of the head and neck had open arteries without any significant stenosis. He had an old or late subacute lacunar infarct in the right basal ganglia. No midline shift. Chest x-ray without any acute cardiopulmonary process Brain MRI states there is no acute process even though CT head stroke. - HOSPITAL COURSE Hospital Course: When the patient was seen in the emergency room he had a definite left sided body weakness. By the time he had left ER and was in [facility], the weakness was resolving that afternoon. By the evening of his admission day all of his symptoms had resolved. I kept him overnight. He recovered much more quickly than I expected for a definitive stroke on CT. On the morning of discharge she had no residual whatsoever. Physical exam was baseline for him according to he and his . Temperature is 36.4. Blood pressure 156/94 and I was allowing permissive hypertension for the first 48 to 72 hours. Heart rate 96. Overnight telemetry was sinus. Respirations was 19. 92% on room air. Very congenial, middle-aged white male who looks stated age. No distress. Some cognitive deficits and memory and recall are becoming difficult for him and its expressed an inability to remember some dates or sequence of events. He relies on his . No facial asymmetry. Speech is normal. Swallowing is normal. No bruits of the neck. Lungs are clear. Abdomen is benign. Regular rate and rhythm. Echocardiogram was not done since he had an echocardiogram in November. He has bilateral leg pain and bilateral plantar and dorsiflexion reduction and mobility due to chronic musculoskeletal pain. He says this is unchanged for him. 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 He said he is due to see a prime minister next week and I strongly encouraged him to make sure he follows through on that. The lesion is quite large. I have added Plavix at discharge. He will need to be on Plavix for 3 to 4 weeks. I would leave it to the discretion of his primary care provider of when to stop Plavix. I explained to the patient that he needs to lose about 28 pounds which is 10% of his body weight. His glucose has to be perfect. Since his fasting is 163, I would recommend he be started on metformin. He has had "borderline diabetes" for a while now. I explained that with his current stroke, he needs to reduce his risk is much as possible hence the metformin and getting an A1c below 7%. While here his blood pressure was consistently above 140/70. Again I was allowing permissive hypertension for the first 48 to 72 hours. He takes metoprolol XL 25 twice daily at home. Losartan 100 daily. Consider adding Hydrocort thiazide and reevaluate him in a month to make sure blood pressure is being adequately controlled. As for his cholesterol risk factor, his fasting triglyceride was 64, cholesterol 106, LDL 45, HDL 48. He is at goal with his current statin therapy and that was not changed. Greater than 30 minutes was spent coordinating discharge and discussing all of this with the patient. This document was made in part using voice recognition software. While efforts are made to proofread this document, sound alike and grammatical errors may occur. - ALLERGIES Allergies/Adverse Reactions: Allergies Allergy/AdvReac Type Severity Reaction Status Date / Time Penicillins Allergy Hives Verified 07/29/19 12:02 - MEDICATIONS Home Medications: Ambulatory Orders Medication Instructions Recorded Confirmed Gabapentin 600 mg ORAL TID 11/01/16 04/07/23 Losartan [Cozaar] 100 mg ORAL DAILY 11/01/16 04/07/23 Tamsulosin [Flomax] 0.4 mg ORAL DAILY 11/01/16 04/07/23 oxyCODONE [Roxicodone] 5 mg ORAL BID PRN 11/01/16 04/07/23 Albuterol Sulfate [Proair 90 mcg IH PRN PRN 04/07/23 04/07/23 Respiclick] Aspirin [Vazalore] 81 mg PO DAILY 04/07/23 04/07/23 Atorvastatin Calcium 40 mg PO DAILY 04/07/23 04/07/23 Buprenorphine 1 applic TD Q7D 04/07/23 04/07/23 Carbidopa/Levodopa [Carbidopa-Levo 1 each PO QPM PRN 04/07/23 04/07/23 ER 25-100 Tab] DULoxetine [Cymbalta] 20 mg PO DAILY 04/07/23 04/07/23 Metoprolol Succinate [Toprol Xl] 25 mg PO BID 04/07/23 04/07/23 Nortriptyline [Pamelor] 25 mg PO 0800,1400 04/07/23 04/07/23 Nortriptyline [Pamelor] 75 mg PO HS 04/07/23 04/07/23 Omeprazole Magnesium 20 mg PO DAILY 04/07/23 04/07/23 Testosterone [Androgel] 5 gm TD DAILY 04/07/23 04/07/23 Clopidogrel [Plavix] 75 mg PO DAILY #30 tablet 04/08/23 - LABS Result Diagrams: 04/07/23 07:20 04/08/23 04:29
== END 2023-04-08 10:16 | disposition home or self-care (01) | DRG 65 ==
LOC: EDUNIT# → ED 07:08 → MS3 11:04
PROVIDERS: ADMIT Specialist; ATTEND Specialist
DX: I63.9 Cerebral infarction, unspecified (principal); G81.94 Hemiplegia, unspecified affecting left nondominant side; R53.1 Weakness; R29.706 NIHSS score 6; E78.00 Pure hypercholesterolemia, unspecified; R27.0 Ataxia, unspecified; R42 Dizziness and giddiness; R11.0 Nausea; E78.5 Hyperlipidemia, unspecified; F41.8 Other specified anxiety disorders; E87.6 Hypokalemia; R73.9 Hyperglycemia, unspecified; R73.01 Impaired fasting glucose; L98.491 Non-pressure chronic ulcer of skin of other sites limited to breakdown of skin; Z79.891 Long term (current) use of opiate analgesic; R41.89 Other symptoms and signs involving cognitive functions and awareness; R73.03 Prediabetes; I11.0 Hypertensive heart disease with heart failure; I50.9 Heart failure, unspecified; G62.9 Polyneuropathy, unspecified; N40.0 Benign prostatic hyperplasia without lower urinary tract symptoms; N28.9 Disorder of kidney and ureter, unspecified; G89.4 Chronic pain syndrome; Z87.891 Personal history of nicotine dependence; R20.0 Anesthesia of skin
CPT/HCPCS: 36415; 70496; 70498; 70551; 71045; 80048; 80053; 80061; 83690; 85025; 85610; 93005; 96365; 96366; 97162; 97166; 97530; 99285; A9270; Q9967; 83721

== ENCOUNTER 2023-04-10 09:21 | Outpatient (CLI) | payer MEDICARE ==
[2023-04-10] MEDS ORDERED: ALBUTEROL 1 PUFF INH STA (11:16)
== END 2023-04-10 09:22 | disposition home or self-care (01) ==
LOC: RT 09:21
PROVIDERS: ATTEND Physician Assistant
DX: R06.02 Shortness of breath (principal)
CPT/HCPCS: 94060; 94729

== ENCOUNTER 2023-05-11 08:20 | Outpatient (CLI) | payer MEDICARE ==
[2023-05-11 08:58] LABS: ALBUMIN 4.1 g/dL (3.2-5.5); ALBUMIN/GLOBULIN RATIO 1.6 (1.0-2.2); BILIRUBIN,TOTAL 0.9 mg/dL (0.2-1.0); CALCIUM 10.2 mg/dL (8.5-10.3); CREATININE 0.9 mg/dL (0.6-1.3); POTASSIUM 4.1 mmol/L (3.5-4.5); TOTAL PROTEIN 6.7 g/dL (6.4-8.9)
[2023-05-11 11:32] LABS: ESTIMATED AVERAGE GLUCOSE 91 mg/dL (70-100); HEMOGLOBIN A1c% 4.8 % (4.27-6.07)
[2023-05-12 19:07] LABS: FREE TESTOSTERONE(DIRECT) 3.3 pg/mL (6.6-18.1)
== END 2023-05-11 08:21 | disposition home or self-care (01) ==
LOC: LAB 08:20
PROVIDERS: ATTEND Physician Assistant
DX: R73.01 Impaired fasting glucose (principal); Z79.890 Hormone replacement therapy
CPT/HCPCS: 36415; 80053; 83036; 84402; 84403

== ENCOUNTER 2023-05-17 07:03 | Outpatient (CLI) | payer MEDICARE | END 2023-05-17 07:04 | disposition short-term general hospital (02) | LOC: EMS 07:03 | DX: R53.1 Weakness (principal); R11.0 Nausea; R42 Dizziness and giddiness | CPT/HCPCS: A0425; A0429 ==

== ENCOUNTER 2024-03-11 12:09 | Outpatient (CLI) | payer MEDICARE ==
[2024-03-11 12:48] LABS: CREATININE 0.8 mg/dL (0.6-1.3)
[2024-03-11] MEDS: iohexoL-300 100 ML VIAL IVP ONE (14:23)
--- NOTE | 2024-03-12 08:29 | XRAY Report ---
PROCEDURE: Shoulder 2+V RT INDICATIONS: RIGHT SHOULDER PAIN TECHNIQUE: 3 views of the shoulder were acquired. COMPARISON: None. FINDINGS: Bones: No fractures or dislocations. No suspicious bony lesions. Uzou-sw-cllpiiag acromioclavicula r and glenohumeral joint degeneration. Visualized ribs appear intact. Soft tissues: No suspicious soft tissue calcifications. The visualized lungs are within normal limi ts. IMPRESSION: 1. No acute bony abnormality. 2. Dekj-km-nnynhymi degenerative joint disease. If there is high clinical suspicion for tendon, ligam ent or labral pathology, consider MRI. Reviewed by: Odalys Monroe MD on 03/12/2024 7:28 AM ERIN Approved by: Odalys Monroe MD on 03/12/2024 7:28 AM ERIN Station ID: [id number]
--- NOTE | 2024-03-12 10:12 | CT Report ---
PROCEDURE: Abdomen/Pelvis W INDICATIONS: RUQ ABD PAIN CONTRAST: Omni 300 100ml TECHNIQUE: After the administration of intravenous contrast, a CT scan of the abdomen and pelvis was performed. Images were recorded and evaluated at appropriate window settings. Reformats: coronal and sagittal. F or radiation dose reduction, the following was used: automated exposure control, adjustment of mA and /or kV according to patient size. COMPARISON: Ultrasound abdomen, 12/08/2020. Ultrasound retroperitoneum, 11/21/2022. FINDINGS: Image quality: Diagnostic. Lower chest: Lung bases are clear. Small hiatal hernia. Liver: No solid mass. Liver is normal in size. Subtle nodular contour liver. Mild hepatic steatosis. Gallbladder: No radiopaque gallstones. Biliary tree: No intrahepatic or extrahepatic dilation, accounting for age. Spleen: No splenomegaly. Pancreas: No pancreatic ductal dilation. Adrenals: No adrenal nodule. Kidneys and ureters: No hydronephrosis. No renal cystic lesion which requires follow up. No solid mas s. Stomach, bowel and peritoneum: No gastric or small bowel dilation. No abnormal wall thickening. No pa thologic free fluid. Lymph nodes: No central or retroperitoneal adenopathy. Vessels: No infrarenal aortic aneurysm. Patent portal vein. Mild atherosclerotic calcification. PELVIS Reproductive organs: Unremarkable. Bladder: No abnormal wall thickening, accounting for underdistention. Pelvic lymph nodes: No pelvic adenopathy by size criteria. Bones: No aggressive osseous abnormality. Degenerative and postsurgical changes noted in lumbar spine . Probably a intraosseous hemangioma in T11. Other: No significant ventral or inguinal hernia. IMPRESSION: 1. Liver demonstrates nodular contour suggesting cirrhosis. Please correlate clinically. 2. Hepatic steatosis. Reviewed by: Odalys Monroe MD on 03/12/2024 9:11 AM ERIN Approved by: Odalys Monroe MD on 03/12/2024 9:11 AM AKANNE Station ID: [id number]
== END 2024-03-11 12:10 | disposition home or self-care (01) ==
LOC: LAB 12:09
PROVIDERS: ATTEND Physician Assistant
DX: R10.11 Right upper quadrant pain (principal); M19.011 Primary osteoarthritis, right shoulder; R93.2 Abnormal findings on diagnostic imaging of liver and biliary tract; K76.0 Fatty (change of) liver, not elsewhere classified
CPT/HCPCS: 36415; 73030; 74177; 82565; Q9967

== ENCOUNTER 2024-03-13 08:20 | Outpatient (CLI) | payer MEDICARE ==
[2024-03-13 08:44] LABS: BASOPHILS % (AUTO) 0.8 %; EOSINOPHILS # (AUTO) 0.1 10^3/uL (0.0-0.7); EOSINOPHILS % (AUTO) 2.4 %; HCT - HEMATOCRIT 43.6 % (42.0-52.0); HGB - HEMOGLOBIN 14.7 g/dL (14.0-18.0); LYMPHOCYTES # (AUTO) 1.5 10^3/uL (1.5-3.5); LYMPHOCYTES % (AUTO) 30.3 %; MEAN CORPUSCULAR HEMOGLOBIN 31.1 pg (27.0-31.0); MEAN CORPUSCULAR HGB CONC 33.7 g/dL (32.0-36.0); MEAN CORPUSCULAR VOLUME 92.4 fL (80.0-94.0); MEAN PLATELET VOLUME 8.8 fL (7.4-11.4); MONOCYTES # (AUTO) 0.4 10^3/uL (0.0-1.0); NEUTROPHILS # (AUTO) 2.8 10^3/uL (1.5-6.6); NEUTROPHILS % (AUTO) 57.1 %; PLT - PLATELET COUNT 121 10^3/uL (130-450); RED BLOOD COUNT 4.72 10^6/uL (4.70-6.10); RED CELL DISTRIBUTION WIDTH 12.5 % (12.0-15.0); WHITE BLOOD COUNT 4.9 x10^3/uL (4.8-10.8)
[2024-03-13 08:49] LABS: INR 1.2 (0.8-1.2); PT - PROTHROMBIN TIME 12.9 secs (9.9-12.6)
[2024-03-13 09:04] LABS: BUN - BLOOD UREA NITROGEN 9 mg/dL (6-20); CALCIUM 10.4 mg/dL (8.5-10.3); CARBON DIOXIDE - CO2 29 mmol/L (21-32); CHLORIDE 103 mmol/L (101-111); CHOL/HDL RATIO 2.5 (<5.0); CHOLESTEROL 120 mg/dL; CREATININE 0.9 mg/dL (0.6-1.3); GAMMA GLUTAMYL TRANSPEPTIDASE 142 IU/L (9-64); GFR - MDRD 85 (>89); GLUCOSE 104 mg/dL (74-104); HDL CHOLESTEROL 48 mg/dL; LDL CHOLESTEROL,CALCULATED 42 mg/dL; LDL/HDL RATIO 0.9 (<3.6); POTASSIUM 3.7 mmol/L (3.5-4.5); SODIUM 137 mmol/L (135-145); TRIGLYCERIDES 152 mg/dL (48-352); VLDL CHOLESTEROL 30 mg/dL
[2024-03-13 09:05] LABS: ALBUMIN 4.3 g/dL (3.2-5.5); BILIRUBIN,DIRECT 0.22 mg/dL (0.03-0.18)
[2024-03-14 03:12] LABS: HBsAG SCREEN Negative (Negative); HEPATITIS B SURFACE AB QUANT <3.5 mIU/mL (Immunity>9.9)
== END 2024-03-13 08:21 | disposition home or self-care (01) ==
LOC: LAB 08:20
PROVIDERS: ATTEND Physician Assistant
DX: I10 Essential (primary) hypertension (principal); E78.5 Hyperlipidemia, unspecified; K74.60 Unspecified cirrhosis of liver
CPT/HCPCS: 36415; 80048; 80061; 80076; 82140; 82977; 83721; 85025; 85610; 86317; 86704; 86709; 86803; 87340; 87522

== ENCOUNTER 2024-04-24 12:26 | Outpatient (CLI) | payer MEDICARE | END 2024-04-24 12:27 | disposition home or self-care (01) | LOC: DI 12:26 | PROVIDERS: ATTEND Physician Assistant | DX: I77.810 Thoracic aortic ectasia (principal); I51.7 Cardiomegaly | CPT/HCPCS: 93307 ==

== ENCOUNTER 2025-08-17 20:34 | Observation (INO) ==
--- OUTSIDE RECORDS SUMMARY | 2025-08-17 20:43 | EXTERNAL MEDICAL SUMMARY RPT | Continuity of Care Document ---
Author Organization [facility] Address [address] [place] [id number] Phone Problems date description facility 2025-07-04 00:04 Nontoxic single thyroid nodule [facility] 2025-07-04 00:04 Pure hypercholesterolemia [facility] 2025-07-04 00:04 Pure hypercholesterolemia, unsp ecified [facility] 2025-07-04 00:04 Essential (primary) hypertensio n [facility] 2025-07-04 00:04 Other obstructive and reflux ur opathy [facility] 2025-07-04 00:04 Benign prostatic hyp erplasia with lower urinary tract symptoms [facility] 2025-07-04 00:04 Hyperglycemia, unspecified [facility] 2025-07-08 13:53 Pure hypercholesterolemia, unsp ecified [facility] 2025-08-14 10:41 Primary osteoarthritis, right s [facility] Results/Labs test date facility value unit notes Result panel 1 NUCLEATED RED BLOOD CELLS AUTO 2025-07-03 08:46 [facility] 0.0 /100wbc (missing) BASOPHILS # (AUTO) 2025-07-03 08:46 [facility] 0.0 10 3/ul (missing) NRBC ABSOLUTE COUNT (AUTO) 2025-07-03 08:46 [facility] 0.00 x10 3/ul (missing) EOSINOPHILS # (AUTO) 2025-07-03 08:46 [facility] 0.2 10 3/ul (missing) MONOCYTES # (AUTO) 2025-07-03 08:46 [facility] 0.5 10 3/ul (missing) LDL/HDL RATIO 2025-07-03 08:46 [facility] 0.7 (missing) (missing) CREATININE 2025-07-03 08:46 [facility] 0.9 mg/dl As of April 2023 testing method has changed, this may include reference ranges. BILIRUBIN,TOTAL 2025-07-03 08:46 [facility] 1.1 mg/dl As of April 2023 testing method has changed, this may include reference ranges. LYMPHOCYTES # (AUTO) 2025-07-03 08:46 [facility] 1.6 10 3/ul (missing) ALBUMIN/GLOBULIN RATIO 2025-07-03 08:46 [facility] 1.8 (missing) (missing) BUN - BLOOD UREA NITROGEN 2025-07-03 08:46 [facility] 10 mg/dl As of April 2023 testing method has changed, this may include reference ranges. CALCIUM 2025-07-03 08:46 [facility] 10.8 mg/dl As of April 2023 testing method has changed, this may include reference ranges. CHLORIDE 2025-07-03 08:46 [facility] 102 mmol/l As of April 2023 testing method has changed, this may include reference ranges. GLUCOSE 2025-07-03 08:46 [facility] 103 mg/dl As of April 2023 testing method has changed, this may include reference ranges. CHOLESTEROL 2025-07-03 08:46 [facility] 104 mg/dl Total Cholesterol Risk Classification Cholesterol Level Risk Classification <200 mg/dL Desirable 200-239 mg/dL Borderline High >240 mg/dL High As of April 2023 testing method has changed, this may include reference ranges. ESTIMATED AVERAGE GLUCOSE 2025-07-03 08:46 [facility] 111 mg/dl (missing) RED CELL DISTRIBUTION WIDTH 2025-07-03 08:46 [facility] 13.1 % (missing) SODIUM 2025-07-03 08:46 [facility] 137 mmol/l (missing) HGB - HEMOGLOBIN 2025-07-03 08:46 [facility] 14.7 g/dl (missing) PLT - PLATELET COUNT 2025-07-03 08:46 [facility] 167 10 3/ul (missing) AST ASPARTATE AMINOTRANSFERASE 2025-07-03 08:46 [facility] 19 iu/l As of April 2023 testing method has changed, this may include reference ranges. VLDL CHOLESTEROL 2025-07-03 08:46 M2M Solution 19 mg/dl (missing) CHOL/HDL RATIO 2025-07-03 08:46 [facility] 2.1 (missing) NATIONAL CHOLESTEROL GUIDELINE [facility] ([facility]) guidelines for classificaton, testing and management of cholesterol levels in adults over 20 years of age. This new classification creates three categories of risk for coronary heart disease, regardless of age or sex, according to total amd LDL cholesterols levels: Based on total cholesterol level Desirable <200 mg/dl Borderline-high 200-239 mg/dl High >=240 mg/dl Based on cholesterol ratio CHD RISK CHOL/HDL RATIO --- MALE FEMALE 0.5 x Average 3.4 3.3 1.0 x Average 5.0 4.4 2.0 x Average 9.6 7.1 3.0 x Average 13.5 11.0 THYROID STIMULATING HORMONE 2025-07-03 08:46 [facility] 2.22 uiu/ml (missing) NEUTROPHILS # (AUTO) 2025-07-03 08:46 [facility] 2.4 10 3/ul (missing) GLOBULIN 2025-07-03 08:46 M2[facility] Solution 2.5 g/dl (missing) PSA SCREEN (Z12.5) 2025-07-03 08:46 M2M Solution 3.974 ng/ml [facility] uses a WHO cutoff value of 2.0 ng/mL. CARBON DIOXIDE - CO2 2025-07-03 08:46 M2M Solution 31 mmol/l As of April 2023 testing method has changed, this may include reference ranges. MEAN CORPUSCULAR HEMOGLOBIN 2025-07-03 08:46 M2M Solution 31.3 pg (missing) MEAN CORPUSCULAR HGB CONC 2025-07-03 08:46 M2M Solution 33.8 g/dl (missing) LDL CHOLESTEROL,CALCULATED 2025-07-03 08:46 M2M Solution 35 mg/dl LDLD REFERENCE RANGE AND CARDIOVASCULAR RISK: <130 mg/dL Desirable 130-159 mg/dL Borderline High Risk >160 mg/dL High Risk ANION GAP 2025-07-03 08:46 M2M Solution 4.0 (missing) (missing) POTASSIUM 2025-07-03 08:46 M2M Solution 4.2 mmol/l As of April 2023 testing method has changed, this may include reference ranges. ALBUMIN 2025-07-03 08:46 M2M Solution 4.5 g/dl As of April 2023 testing method has changed, this may include reference ranges. WHITE BLOOD COUNT 2025-07-03 08:46 M2M Solution 4.6 x10 3/ul (missing) RED BLOOD COUNT 2025-07-03 08:46 M2M Solution 4.69 10 6/ul (missing) HCT - HEMATOCRIT 2025-07-03 08:46 M2M Solution 43.5 % (missing) HEMOGLOBIN A1c% 2025-07-03 08:46 M2M Solution 5.5 % The [place] [employer] (ADA) has made the following recommendations: Monitoring HbA1c in Diabetic Patients: A1c (NGSP%) Goal <8 Less Stringent Goal <7 General Goal <6.5 More Stringent Goal Diagnosis of Diabetes: A1c (NGSP%) Goal >6.5 Diabetic 5.7-6.4 Pre-Diabetic <5.7 Non-Diabetic HDL CHOLESTEROL 2025-07-03 08:46 M2M Solution 50 mg/dl Coronary Heart Disease Risk Classification HDL Level Risk factor < 40 mg/dL major risk > 60 mg/dL negative risk As of April 2023 testing method has changed, this may include reference ranges. ALKALINE PHOSPHATASE 2025-07-03 08:46 M2M Solution 60 iu/l As of April 2023 testing method has changed, this may include reference ranges. TOTAL PROTEIN 2025-07-03 08:46 [facility] 7.0 g/dl As of April 2023 testing method has changed, this may include reference ranges. GFR - MDRD 2025-07-03 08:46 M2M Solution 84 (missing) The IDMS-traceable MDRD Study Equation has been validated extensively in and populations between the ages of 18 and 70 with impaired kidney function (eGFR < 60 mL/min/1.73m2) and has shown good performance for patients with all common causes of kidney disease. Although this equation has not been validated for patients older than 70, an MDRD-derived eGFR may still be a useful tool for providers caring for patients older than 70. References: http://www.nkdep.ni h.gov/lab-evaluatio n/gfr/creatinine-st and ardization, last updated December 2011. ALT ALANINE AMINOTRANSFERASE 2025-07-03 08:46 M2M Solution 9 iu/l As of April 2023 testing method has changed, this may include reference ranges. MEAN PLATELET VOLUME 2025-07-03 08:46 M2M Solution 9.1 fl (missing) MEAN CORPUSCULAR VOLUME 2025-07-03 08:46 M2M Solution 92.8 fl (missing) TRIGLYCERIDES 2025-07-03 08:46 M2M Solution 93 mg/dl Triglyceride Risk Classification <150 mg/dL Normal 150-199 mg/dL Borderline High 200-499 mg/dL High >500 mg/dL Very High As of April 2023 testing method has changed, this may include reference ranges. Social History date description facility
--- NOTE | 2025-08-17 21:03 | ED Physician Documentation ---
History of Present Illness Stated complaint Stated Complaint: DIZZY/LORA Chief complaint Chief Complaint: Neuro Additonal information Additional information: BIBA. HPI from patient, EMS. Patient's spouse subsequently arrives to ED and contributes to HPI. Patient woke from sleep at approximately 5:30 AM 08/16/25 with mild generalized headache, dizziness, bilateral blurry vision. The symptoms have been constant and steadily progressive. He developed nausea and vomiting earlier tonight. There is a positional component to the dizziness which he describes as spinning sensation. On ROS he notes generalized weakness but denies focal/lateralized weakness. Denies numbness, recent injury, fever, cough, dyspnea, abdominal pain. He says he has chronic generalized body pain that is no different than his baseline chronic pain. Patient has h/o CVA with ongoing problems with short-term memory as a result of one of the strokes but otherwise no chronic/permanent deficits attributed to these previous CVAs. Patient says his symptoms are "identical" (per patient) to those associated with previous CVA presentations. Meds/Allgy Home Medications Ambulatory Orders Medication Instructions Recorded Confirmed oxycodone 10 mg tablet 5 mg ORAL TID PRN Pain 11/0108/18/25 buprenorphine 10 mcg/hour weekly 1 applic transdermal Q7D 04/07/23 08/17/25 transdermal patch nortriptyline 25 mg capsule See Rx Instructions .Route 10/09/24 08/17/25 .COMPLEX #450 caps clopidogrel 75 mg tablet 75 mg PO DAILY #90 tabs 12/2408/17/25 carbidopa ER 25 mg-levodopa 100 mg 1 tab PO QPM PRN RL S #90 tabs 07/11/25 08/17/25 tablet,extended release metoprolol succinate 25 mg 25 mg PO BID #180 tabs 07/0208/17/25 tablet,extended release 24 hr albuterol sulfate 90 mcg/actuation 90 mcg inhalation Q 4-6H PRN 08/18/25 08/18/25 breath activated powder inhaler shortness of breath or wheezing (ProAir RespiClick) atorvastatin 40 mg tablet 40 mg PO DAILY 08/18/2508/02 duloxetine 20 mg capsule,delayed 20 mg PO HS 08/18/25 08/18/25 release gabapentin 600 mg tablet 600 mg PO BID 08/18/2508/18 losartan 100 mg tablet 100 mg PO DAILY High blood p ressure 08/18/25 08/18/25 pantoprazole 20 mg tablet,delayed 20 mg PO DAILY 08/1808/18/25 release tamsulosin 0.4 mg capsule 0.8 mg PO DAILY 08/18/25 umeclidinium 62.5 mcg-vilanterol 1 inh inhalation TAHIR Y Asthma/COPD 08/18/25 08/18/25 25 mcg/actuation powdr for inhalation (Anoro Ellipta) Allergies Allergies Allergy/AdvReac Type Severity Reaction Status Date / Time buprenorphine (From Suboxone) Allergy Severe Hallucinati Verified 08/17/25 20:40 ons naloxone (From Suboxone) Allergy Severe Hallucinati Verified 08/17/25 20:40 ons Penicillins Allergy Severe Hives Verified 08/17/25 20:40 PFSH Active Problems All Active Problems (Updated 08/18/25 @ 01:52 by Miki Mayen MD) Dizziness (Acute) Vertigo (Acute) Rising PSA level (Chronic) Thyroid nodule (Acute) Asthma (Acute) Chronic pain (Acute) Ankylosing spondylitis (Acute) Erectile dysfunction of organic origin (Acute) Hypertension, essential, benign (Acute) Disorder of ligament, left shoulder (Acute) Radiculopathy, thoracolumbar region (Acute) BPH with urinary obstruction (Acute) Peripheral neuropathy (Acute) Hoarseness, chronic (Acute) Screening for malignant neoplasm of prostate (Acute) Hepatitis C (Acute) 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) use of opiate analgesic (Acute) Sprain of unspecified site of left knee, initial encounter (Acute) Unspecified internal derangement of knee (Acute) Preventative health care (Acute) Anemia (Acute) Obesity (Acute) Umbilical hernia (Acute) Chest pain (Acute) Myocardial perfusion defect (Acute) Screening for colon cancer (Acute) Fasting hyperglycemia (Acute) Fatigue (Acute) Anxiety (Acute) Low serum testosterone level (Acute) Acute nontraumatic kidney injury (Acute) Elevated serum creatinine (Acute) Bilateral leg edema (Acute) Dyspnea on exertion (Acute) Restless leg syndrome (Acute) Vision changes (Acute) Ascending aorta dilatation (Acute) Shortness of breath (Acute) Neoplasm of uncertain behavior (Acute) Elevated alkaline phosphatase level (Acute) Current long-term use of postmenopausal hormone replacement therapy (Acute) Lacunar infarction (Acute) COPD, mild (Acute) Hypogonadism, testicular (Acute) Tremor (Acute) Abdominal pain, RUQ (Acute) Shoulder pain, right (Acute) Short-term memory loss (Acute) Cirrhosis (Acute) Osteoarthritis of right shoulder (Acute) Unspecified disturbances of skin sensation (Acute) Hereditary and idiopathic neuropathy, unspecified (Acute) Non-pressure chronic ulcer of other part of unspecified foot with fat layer exposed (Acute) Neuropathic pain, leg, bilateral (Acute) 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 (Date/Year): Quit 45 yrs ago How many cigarettes a day do you smoke? (20 cigarettes=1 Pk): 20 Second hand tobacco smoke exposure: No Do you dip or chew tobacco?: No Do you vape?: No Patient requests smoking cessation consult: No Living arrangement: At home Marital Status: Living Condition: With spouse/s.o. Support Person: Yes Physical Activity: Walking Level: Assisted Home Mobility Equipment: Cane Do you feel safe in your home environment?: Yes History of physical, verbal, emotional, or financial abuse?: No Frequency: Weekly ETOH - Additional Notes: non alochol Substance Use: denies use POLST Patient has POLST: No Exam Exam Vital Signs: Vital Signs x48h Temp Pulse Resp BP Pulse Ox 08/17/25 20:34 36.2 C L 75 20 204/91 H 94 Constitutional normal general appearance and alert AAOx3, answers quickly and appropriately, follows commands but keeps eyes closed and head still (indicates to me opening eyes and/or turning head worsens his dizziness) Eyes PERRL, EOMs intact bilaterally and no nystagmus Respiratory breath sounds equal bilaterally and clear to auscultation bilaterally Cardiovascular normal heart rate noted, regular rhythm noted and no murmur Gastrointestinal abdomen soft to palpation, nontender to palpation, nondistended and normoactive bowel sounds 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, no focal motor deficit noted, no sensory deficits noted, speech normal and GCS 15 Psychiatry oriented x3, cooperative and affect normal Skin skin color normal Results Vitals Vitals: Vital Signs - 24 hr 08/17/25 20:34 08/17/25 20:45 08/17/25 21:00 Temperature 36.2 C L Temperature Source Temporal Artery Scan Pulse Rate 75 80 72 Respiratory Rate 20 18 13 Blood Pressure 204/91 H 221/86 H 172/117 H O2 Saturation 94 92 92 O2 Source Room air Room air Pain Intensity 6 08/17/25 21:30 08/17/25 21:35 08/17/25 21:45 Temperature Temperature Source Pulse Rate 72 Respiratory Rate Blood Pressure 173/92 H 166/86 H 162/93 H O2 Saturation 92 O2 Source Pain Intensity 08/17/25 22:00 08/17/25 22:15 08/17/25 22:30 Temperature Temperature Source Pulse Rate 67 Respiratory Rate 14 Blood Pressure 167/93 H 161/100 H 163/86 H O2 Saturation 92 O2 Source Room air Pain Intensity 08/17/25 22:45 08/17/25 23:17 08/18/25 00:00 Temperature Temperature Source Pulse Rate 68 66 Respiratory Rate 18 18 Blood Pressure 139/68 H 157/96 H O2 Saturation 95 93 O2 Source Room air Room air Pain Intensity 6 Oxygen O2 Source Room air EKG (time done) 20:40: EKG releavant findings:: EKG personally interpreted by author of this note. Relevant findings are: Rate: Rate (enter#) (77) Rhythm: NSR and Normal P waves [place]: LAD Intervals: Normal MD QRS: QRS normal Ischemia: Normal ST segments Labs Labs: Laboratory Tests 08/17/25 08/17/25 20:38 21:15 WBC 5.7 RBC 4.75 Hgb 14.4 Hct 43.8 MCV 92.2 MCH 30.3 MCHC 32.9 RDW 12.9 Plt Count 145 MPV 8.9 Neut # (Auto) 3.9 Lymph # (Auto) 1.3 L [place] # (Auto) 0.4 Eos # (Auto) 0.1 Baso # (Auto) 0.0 Absolute Nucleated RBC 0.00 Nucleated RBC % 0.0 PT 12.4 INR 1.1 APTT 23.3 L Sodium 138 Potassium 3.7 Chloride 103 Carbon Dioxide 26 Anion Gap 9.0 BUN 10 Creatinine 0.9 Estimated GFR (MDRD) 84 L Glucose 150 H Estimat Average Glucose 105 H Hemoglobin A1c % 5.3 Calcium 10.3 Total Bilirubin 0.9 AST 16 ALT 18 Alkaline Phosphatase 67 Total Protein 6.8 Albumin 4.2 Globulin 2.6 Albumin/Globulin Ratio 1.6 Triglycerides 73 Cholesterol 112 LDL Cholesterol, Calc 39 VLDL Cholesterol 15 HDL Cholesterol 58 L LDL/HDL Ratio 0.7 Cholesterol/HDL Ratio 1.9 Nasal Adenovirus (PCR) NOT DETECTED Nasal B. parapertussis DNA (PCR) NOT DETECTED Nasal Coronavir 229E PCR NOT DETECTED Nasal Coronavir HKU1 PCR NOT DETECTED Nasal Coronavir NL63 PCR NOT DETECTED Nasal Coronavir OC43 PCR NOT DETECTED Nasal Enterovir/Rhinovir PCR NOT DETECTED Nasal Influenza B PCR NOT DETECTED Nasal Influenza A PCR NOT DETECTED Nasal Parainfluen 1 PCR NOT DETECTED Nasal Parainfluen 2 PCR NOT DETECTED Nasal Parainfluen 3 PCR NOT DETECTED Nasal Parainfluen 4 PCR NOT DETECTED Nasal RSV (PCR) NOT DETECTED Nasal B.pertussis DNA PCR NOT DETECTED Nasal C.pneumoniae (PCR) NOT DETECTED [place] Human Metapneumo PCR NOT DETECTED Nasal M.pneumoniae (PCR) NOT DETECTED Nasal SARS-CoV-2 (PCR) NOT DETECTED Rads (name of study) CTH: Relevant Findings:: Prelim report reviewed and See rad report CTA head/neck: Relevant Findings:: Prelim report reviewed and See rad report CXR: Relevant Findings:: Prelim report reviewed and See rad report PD Medical Decision Making ED course Complexity details: reviewed results, re-evaluated patient, considered d ifferential, d/w patient and d/w family ED course: Significant high blood pressure readings early in stay (SBP 190s-220s), labetalol ordered but prior to receiving this medication, BP improved to 160s- 170s and thus labetalol not given. He is given 25 mg PO meclizine for possible vertigo. Later in stay he is given oxycodone, gabapentin, and nortryptilene (patient says he was due for his HS doses of these medications). No concerning nor diagnostic findings on imaging including CTH, CTA head/neck, and no concerning findings on EKG, blood tests. Negative respiratory PCR panel. On reevaluation, patient says he feels symptoms have improved but not resolved. He appears more comfortable, opening his eyes spontaneously and moving/rotating head during conversation without apparent distress. Given patient's report that these symptoms are similar to previous symptoms he had when (per patient) he was diagnosed with CVA, plan is to admit to [facility] for completion of stroke workup. Late in ED stay I discussed this case with Dr. 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 Dr. Lewis agrees patient is appropriate for admit to [facility]. I then d/w [facility] who accepts patient to [facility] hospitalist service. Discharge Plan Discharge Patient Disposition: ED Place in Observation Condition: Good Clinical Impression: Dizziness Interventions: ED Admission Assessment Last Done: 08/18/25 02:22 Vitals documented within 30 minutes of discharge?: Yes NIHSS Level of Consciousness Level of consciousness: (0) Alert, Keenly responsive LOC Questions: (0) Answers both Q's correct LOC Commands: (0) Performs both correctly Gaze Best Gaze: (0) Normal Visual Visual: (0) No loss Facial Palsy Facial Palsy: (0) Normal, symmetrical movement Motor Arms (both separate) Motor Arm (right): (0) No drift Motor Arm (left): (0) No drift Motor Legs (both separate) Motor Leg (right): (0) No drift Motor Leg (left): (0) No drift Limb Ataxia Limb Ataxia: (2) Present in 2 limbs (heel/garcia with ease but mild difficulty f chau-nose BUE) Sensory Sensory: (0) Normal Best Language Best Language: (0) No aphasia Dysarthria Dysarthria: (0) Normal Extinction and Inattention (formally neg Extinction and inattention: (0) No abnormality Total Score/Results Total Score/Result: 2
[2025-08-17 21:07] LABS: HCT - HEMATOCRIT 43.8 % (42.0-52.0); HGB - HEMOGLOBIN 14.4 g/dL (14.0-18.0); MEAN PLATELET VOLUME 8.9 fL (7.4-11.4); NRBC ABSOLUTE COUNT (AUTO) 0.00 x10^3/uL; NUCLEATED RED BLOOD CELLS AUTO 0.0 /100WBC; PLT - PLATELET COUNT 145 10^3/uL (130-450); RED CELL DISTRIBUTION WIDTH 12.9 % (12.0-15.0)
[2025-08-17] MEDS: ONDANSETRON 4 MG/2 ML VIAL IVP STA (21:12)
[2025-08-17 21:21] LABS: INR 1.1 (0.8-1.2); PT - PROTHROMBIN TIME 12.4 secs (9.9-12.6)
[2025-08-17 21:22] LABS: ALT ALANINE AMINOTRANSFERASE 18.0 IU/L (10-60); AST ASPARTATE AMINOTRANSFERASE 16.0 IU/L (10-42); BUN - BLOOD UREA NITROGEN 10.0 mg/dL (6-20); CARBON DIOXIDE - CO2 26.0 mmol/L (21-32); CREATININE 0.9 mg/dL (0.6-1.3); GFR - MDRD 84.0 (>89)
[2025-08-17] MEDS: MECLIZINE 12.5 MG TABLET PO STA (21:27)
--- NOTE | 2025-08-17 21:52 | CT Report ---
PROCEDURE: CT Head W/O Stroke Protocol INDICATIONS: dizziness, blurry vision, h/o CVA TECHNIQUE: Noncontrast angled axial sections acquired from the foramen magnum to the vertex, with coronal reformats. For radiation dose reduction, the following was used: automated exposure control, adjustment of mA and/or kV according to patient size. COMPARISON: Brain MRI 04/07/2023 FINDINGS: Image quality: Diagnostic. CSF spaces: Basal cisterns are patent. No extra-axial fluid collections. Ventricles are normal in size and shape. Brain: No midline shift. No intracranial mass effect or hemorrhage. Das- white matter interface is normal. Skull and face: Calvarium and visualized facial bones are intact, without suspicious lesions. Sinuses: Visualized sinuses and mastoids are clear. IMPRESSION: No acute intracranial pathology Findings were discussed with ordering ED provider by Dr. Medina on 08/17/2025 at 9:48 p.m. PST This study fulfills neurological imaging criteria for inclusion or exclusion of acute stroke therapies based on available published neurological imaging guidelines. Reviewed by: Palma Medina MD, PhD on 08/17/2025 9:49 PM PST Approved by: Palma Medina MD, PhD on 08/17/2025 9:49 PM PST Station ID: [id number]
--- NOTE | 2025-08-17 21:56 | CT Report ---
PROCEDURE: CT Angio Head/Neck INDICATIONS: dizziness, blurry vision, h/o CVA CONTRAST: 100 ML OMNI 300 TECHNIQUE: After the administration of intravenous contrast, images were acquired from the aortic arch through the [place] of [place]. 3-dimensional gsnepde-iykihkbsi-ihcmnwqnyy (MIP) and volume rendering reformats were acquired of the central intracranial vasculature and neck separately. COMPARISON: Same day noncontrast head CT 08/17/2025, brain MRI 04/07/2023. FINDINGS: Image quality: Diagnostic. Cerebral CT Angiogram: Internal carotid arteries: No acute findings. Intracranial ICA are patent with no significant stenosis. No occlusion. No aneurysm. Anterior cerebral arteries: Unremarkable. No significant stenosis. No occlusion. No aneurysm. Middle cerebral arteries: Unremarkable. No significant stenosis. No occlusion. No aneurysm. Posterior cerebral arteries: Unremarkable. No significant stenosis. No occlusion. No aneurysm. Basilar artery: Unremarkable. No significant stenosis. No occlusion. No aneurysm. Vertebral arteries: Unremarkable as visualized. Dural venous sinuses: Unremarkable given phase of enhancement. Other: Arterial phase appearance of the brain parenchyma is unremarkable. Neck CT Angiogram: Internal carotid arteries: Unremarkable. No significant stenosis. No dissection or occlusion. Common carotid arteries: Unremarkable. No significant stenosis. No dissection or occlusion. External carotid arteries: Unremarkable. No occlusion. Vertebral arteries: Unremarkable. No significant stenosis. No dissection or occlusion. Aortic Arch and Mediastinum: Partially visualized aortic arch unremarkable without evidence of aneurysm. Origins of the great vessels unremarkable. Other: Arterial phase soft tissues of the neck and chest are unremarkable. IMPRESSION: No significant intracranial arterial abnormalities are seen. No hemodynamically significant stenosis can be seen within the arteries of the neck. The estimate of stenosis included in the report of the imaging study was calculated using the NASCET method Reviewed by: Palma Medina MD, PhD on 08/17/2025 9:53 PM PST Approved by: Palma Medina MD, PhD on 08/17/2025 9:53 PM PST Station ID: [id number]
[2025-08-17 22:09] LABS: B. PARAPERTUSSIS- RESP PCR PAN NOT DETECTED; B. PERTUSSIS- RESP PCR PANEL NOT DETECTED; C. PNEUMONIAE- RESP PCR PANEL NOT DETECTED; CORONAVIRUS 229E-RESP PCR NOT DETECTED; CORONAVIRUS HKU1-RESP PCR NOT DETECTED; CORONAVIRUS NL63-RESP PCR NOT DETECTED; CORONAVIRUS OC43-RESP PCR NOT DETECTED; HUMAN METAPNEUMOVIRUS NOT DETECTED; INFLUENZA A- RESP PCR PANEL NOT DETECTED; INFLUENZA B - RESP PCR PANEL NOT DETECTED; M. PNEUMONIAE- RESP PCR PANEL NOT DETECTED; PARAINFLUENZA VIRUS 1 NOT DETECTED; PARAINFLUENZA VIRUS 2 NOT DETECTED; PARAINFLUENZA VIRUS 4 NOT DETECTED; RHINOVIRUS/ENTEROVIRUS NOT DETECTED; RSV- RESP PCR PANEL NOT DETECTED; SARS-CoV-2 -RESP PCR PANEL NOT DETECTED
[2025-08-17] MEDS: SODIUM CHLORIDE 0.9% 1,000 ML IV STA (22:15)
[2025-08-17] MEDS: LABETALOL 20 MG/4 ML SYRINGE IVP STA (23:04)
--- NOTE | 2025-08-17 23:09 | XRAY Report ---
PROCEDURE: XR Chest 1V INDICATIONS: chest pain TECHNIQUE: One view of the chest was acquired. COMPARISON: Chest radiograph 04/07/2023 FINDINGS: Surgical changes and devices: None. Lungs and pleura: No pleural effusions or pneumothorax. No consolidation. Mediastinum: Mediastinal contours appear normal. Heart size is normal. Bones and chest wall: No suspicious bony lesions. Overlying soft tissues appear unremarkable. IMPRESSION: No acute cardiopulmonary process. Reviewed by: Palma Medina MD, PhD on 08/17/2025 11:05 PM PST Approved by: Palma Medina MD, PhD on 08/17/2025 11:05 PM PST Station ID: [id number]
[2025-08-17] MEDS: NORTRIPTYLINE 25 MG CAPSULE PO STA (23:17)
[2025-08-17] MEDS: GABAPENTIN 300 MG CAPSULE PO STA (23:17)
[2025-08-17] MEDS: oxyCODONE 5 MG TABLET PO STA (23:17)
[2025-08-18] MEDS ORDERED: CARBIDOPA/LEVODOPA ER 25 MG/100 MG TABLET PO PRN (01:52)
--- NOTE | 2025-08-18 02:13 | HISTORY & PHYSICAL EXAMINATION ---
Chief Complaint Chief Complaint Chief Complaint: Vertigo History of Present Illness History of Present Illness HPI Comment/Other: Patient is 65 y/o M with prior hx of stroke (2 times as per patient in 2022) and no major residual deficits but history of cognitive decline ( not able to remember and confirm any home medications) but home medication lists shows Plavix and Statin, hx of hypertension, and depression is presented to hospital for evaluation of Vertigo, started on Monday08/17/2025 @ 7 am. Lasted for all day, and prompted patient to come emergency room, patient denies focal weakness, passing out completely, blackout or complete loss of conscious ness, patient describes feeling as feeling of waviness and dizziness, somewhat got better after initial ER care (china and leo) patient denies vision loss, denies any speech issues, and any motor weakness, in ER no changes on EKG concerning for cardiac arrythmias, patient was d/w Tele Neurology , after review of Head CT and CTA Head and neck which are essentially normal and no evidence of LVO, Tele neurology recommended inpatient hospital observation to evaluate for cardiac monitoring and MRI of brain. Patient is alert awake and oriented x 3 , provides excellent history Meds/Allgy Home Medications Ambulatory Orders Medication Instructions Recorded Confirmed oxycodone 10 mg tablet 5 mg ORAL BID PRN Pain 11/0108/17/25 buprenorphine 10 mcg/hour weekly 1 applic transdermal Q7D 04/07/23 08/17/25 transdermal patch nortriptyline 25 mg capsule See Rx Instructions .Route 10/09/24 08/17/25 .COMPLEX #450 caps duloxetine 20 mg capsule,delayed See Rx Instructions . Route 05/08/25 08/17/25 release .COMPLEX #90 caps Held on 07/11/25. Instructions: Per Provider clopidogrel 75 mg tablet 75 mg PO DAILY #90 tabs 12/2408/17/25 tamsulosin 0.4 mg capsule See Rx Instructions .Route 0 06/16/25 08/17/25 .COMPLEX #180 caps albuterol sulfate 90 mcg/actuation 90 mcg inhalation P RN PRN 07/11/25 08/17/25 breath activated powder inhaler shortness of breath or wheezing #1 (ProAir RespiClick) ea atorvastatin 40 mg tablet 40 mg PO QDAY #90 tabs 07/1108/17/25 carbidopa ER 25 mg-levodopa 100 mg 1 tab PO QPM PRN RL S #90 tabs 07/11/25 08/17/25 tablet,extended release duloxetine 30 mg capsule,delayed 30 mg PO QDAY Anxiety /Depression 07/11/25 08/17/25 release #30 caps Held on 08/17/25. Instructions: Per Provider gabapentin 600 mg tablet 600 mg PO TID #270 tabs 07/0208/17/25 losartan 100 mg tablet See Rx Instructions .Route 1 08/17/25 .COMPLEX High blood pressure #90 tabs metoprolol succinate 25 mg 25 mg PO BID #180 tabs 07/0208/17/25 tablet,extended release 24 hr pantoprazole 20 mg tablet,delayed 20 mg PO QDAY #90 ta bs 07/11/25 08/17/25 release umeclidinium 62.5 mcg-vilanterol 1 inh inhalation QDAY Asthma/COPD 07/11/25 08/17/25 25 mcg/actuation powdr for #14 ea inhalation (Anoro Ellipta) Allergies Allergies Allergy/AdvReac Type Severity Reaction Status Date / Time buprenorphine (From Suboxone) Allergy Severe Hallucinati Verified 08/17/25 20:40 ons naloxone (From Suboxone) Allergy Severe Hallucinati Verified 08/17/25 20:40 ons Penicillins Allergy Severe Hives Verified 08/17/25 20:40 PFSH Active Problems All Active Problems (Updated 08/18/25 @ 01:52 by Miki Mayen MD) Dizziness (Acute) Vertigo (Acute) Rising PSA level (Chronic) Thyroid nodule (Acute) Asthma (Acute) Chronic pain (Acute) Ankylosing spondylitis (Acute) Erectile dysfunction of organic origin (Acute) Hypertension, essential, benign (Acute) Disorder of ligament, left shoulder (Acute) Radiculopathy, thoracolumbar region (Acute) BPH with urinary obstruction (Acute) Peripheral neuropathy (Acute) Hoarseness, chronic (Acute) Screening for malignant neoplasm of prostate (Acute) 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 C (Acute) 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 (Acute) Sprain of unspecified site of left knee, initial encounter (Acute) Unspecified internal derangement of knee (Acute) Preventative health care (Acute) Anemia (Acute) Obesity (Acute) Umbilical hernia (Acute) Chest pain (Acute) Myocardial perfusion defect (Acute) Screening for colon cancer (Acute) Fasting hyperglycemia (Acute) Fatigue (Acute) Anxiety (Acute) Low serum testosterone level (Acute) Acute nontraumatic kidney injury (Acute) Elevated serum creatinine (Acute) Bilateral leg edema (Acute) Dyspnea on exertion (Acute) Restless leg syndrome (Acute) Vision changes (Acute) Ascending aorta dilatation (Acute) Shortness of breath (Acute) Neoplasm of uncertain behavior (Acute) Elevated alkaline phosphatase level (Acute) Current long-term use of postmenopausal hormone replacement therapy (Acute) Lacunar infarction (Acute) COPD, mild (Acute) Hypogonadism, testicular (Acute) Tremor (Acute) Abdominal pain, RUQ (Acute) Shoulder pain, right (Acute) Short-term memory loss (Acute) Cirrhosis (Acute) Osteoarthritis of right shoulder (Acute) Unspecified disturbances of skin sensation (Acute) Hereditary and idiopathic neuropathy, unspecified (Acute) Non-pressure chronic ulcer of other part of unspecified foot with fat layer exposed (Acute) Neuropathic pain, leg, bilateral (Acute) 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 (Date/Year): Quit 45 yrs ago How many cigarettes a day do you smoke? (20 cigarettes=1 Pk): 20 Do you dip or chew tobacco?: No Do you vape?: No Patient requests smoking cessation consult: No Living arrangement: At home Marital Status: Living Condition: With spouse/s.o. Support Person: Yes Physical Activity: Walking Level: Independent Do you feel safe in your home environment?: Yes History of physical, verbal, emotional, or financial abuse?: No Frequency: Weekly ETOH - Additional Notes: non alochol Substance Use: denies use POLST Patient has POLST: No Review of Systems Status of ROS: 10 or more systems reviewed and unremarkable except as noted in history and below Exam Exam Vital Signs: Vital Signs x48h Temp Pulse Resp BP Pulse Ox 08/18/25 02:00 36.5 C 72 18 163/93 H 96 08/18/25 00:00 66 18 157/96 H 93 08/17/25 22:45 68 18 139/68 H 95 08/17/25 22:30 67 14 163/86 H 92 08/17/25 22:15 161/100 H 08/17/25 22:00 167/93 H 08/17/25 21:45 162/93 H 08/17/25 21:35 166/86 H 08/17/25 21:30 72 173/92 H 92 08/17/25 21:00 72 13 172/117 H 92 08/17/25 20:45 80 18 221/86 H 92 08/17/25 20:34 36.2 C L 75 20 204/91 H 94 patient is talking in full sentences, no acute limitations, limitations are due to televisit, non focal exam , see ER physician note for more details Conclusion/Plan Problem List (1) Vertigo: Plan 65 y.o M with dizziness and vertigo , with prior history of stroke - Admit to hospital - Continue telemonitoring - ok to start diet as no feeding issues - proceed with MRI brain in AM - ordered Echo - Continue Plavix and statin - allow permissive HTN, treat only if SBP > 200 and/or DBP > 100 mmHg - SCD for DVT prophylaxis - Ok to hold BP medications to allow permissive HTN - Full code Lab Results 08/17/25 20:38 08/17/25 20:38
[2025-08-18] MEDS ORDERED: ACETAMINOPHEN 325 MG TABLET PO PRN (02:39)
[2025-08-18] MEDS ORDERED: SODIUM CHLORIDE FLUSH 0.9% 10 ML SYRINGE IVP PRN (02:39)
[2025-08-18] MEDS ORDERED: ONDANSETRON ODT 4 MG TABLET TL PRN (02:39)
[2025-08-18] MEDS ORDERED: hydrALAZINE INJ 20 MG/ML VIAL IVP PRN (02:39)
[2025-08-18] MEDS: SODIUM CHLORIDE 0.9% 1,000 ML IV SCH (04:23)
[2025-08-18 08:32] LABS: CHOL/HDL RATIO 1.9 (<5.0); LDL/HDL RATIO 0.7 (<3.6); VLDL CHOLESTEROL 15 mg/dL
[2025-08-18] MEDS: IPRATROPIUM/ALBUTEROL 3 ML NEB INH SCH (08:34)
[2025-08-18] MEDS: CLOPIDOGREL 75 MG TABLET PO SCH (08:38)
[2025-08-18] MEDS: SODIUM CHLORIDE FLUSH 0.9% 10 ML SYRINGE IVP SCH (11:15)
[2025-08-18] MEDS: HYDROcod/ACETAM 5/325 MG TABLET PO PRN (11:15)
[2025-08-18 11:39] LABS: ESTIMATED AVERAGE GLUCOSE 105 mg/dL (70-100); HEMOGLOBIN A1c% 5.3 % (4.27-6.07)
--- NOTE | 2025-08-18 12:21 | PHARMACY PROGRESS NOTE ---
Best Possible Medication History Admit Date and Time: 08/18/25 0143 Home Medications Medication Instructions Recorded Confirmed Type oxycodone 10 mg tablet 5 mg ORAL TID PRN Pain 11/0108/18/25 History buprenorphine 10 mcg/hour weekly 1 applic transdermal Q7D 04/07/23 08/17/25 History transdermal patch nortriptyline 25 mg capsule See Rx Instructions .Route 10/09/24 08/17/25 Rx .COMPLEX #450 caps clopidogrel 75 mg tablet 75 mg PO DAILY #90 tabs 12/2408/17/25 Rx carbidopa ER 25 mg-levodopa 100 mg 1 tab PO QPM PRN RL S #90 tabs 07/11/25 08/17/25 Rx tablet,extended release metoprolol succinate 25 mg 25 mg PO BID #180 tabs 07/0208/17/25 Rx tablet,extended release 24 hr albuterol sulfate 90 mcg/actuation 90 mcg inhalation Q 4-6H PRN 08/18/25 08/18/25 History breath activated powder inhaler shortness of breath or wheezing (ProAir RespiClick) atorvastatin 40 mg tablet 40 mg PO DAILY 08/18/2508/02 History duloxetine 20 mg capsule,delayed 20 mg PO HS 08/18/25 08/18/25 History release Held on 07/11/25. Instructions: Per Provider gabapentin 600 mg tablet 600 mg PO BID 08/18/2508/18 History losartan 100 mg tablet 100 mg PO DAILY High blood p ressure 08/18/25 08/18/25 History pantoprazole 20 mg tablet,delayed 20 mg PO DAILY 08/1808/18/25 History release tamsulosin 0.4 mg capsule 0.8 mg PO DAILY 08/18/25 History umeclidinium 62.5 mcg-vilanterol 1 inh inhalation TAHIR Y Asthma/COPD 08/18/25 08/18/25 History 25 mcg/actuation powdr for inhalation (Anoro Ellipta) Processed by: Pharmacy Medication History completed: Yes Patient Interview: Completed Secondary Source(s): Written medication list [facility] Statement: As the person ultimately responsible for medication therapy, providers are able to order a medication from an existing home medication list in [facility] via the "Reconcile Routine" prior to Confirmation of that medication by print support specialist. Such practice is discouraged except when the physician, in their clinical judgment, deems that a medical need exists for a medication without regard to previous use.
--- NOTE | 2025-08-18 13:28 | PROVIDER PROGRESS NOTE ---
Current Medications Current Medications Current Medications: Current Medications Generic Name Dose Route Start Last Admin Trade Name Freq PRN Reason Stop Dose Admin Acetaminophen 650 mg 08/18/25 02:39 Acetaminophen 325 Mg Tablet PO Q4HR PRN Pain 1 to 4, or Fever Hydrocodone Bitart/Acetaminophen 1 tab 08/18/25 02:39 08/18/25 11:15 Hydrocod/Acetam 5/325 Mg Tablet PO 1 tab Q4HR PRN Administration Pain 5 to 7 Albuterol/Ipratropium 3 ml 08/18/25 07:00 08/18/25 08:34 Ipratropium/Albuterol 3 Ml Neb INH 3 ml RTQID ELISABETH Administration Atorvastatin Calcium 40 mg 08/18/25 21:00 Atorvastatin 40 Mg Tablet PO HS ELISABETH Carbidopa/Levodopa 1 tab 08/18/25 01:52 Carbidopa/Levodopa Er 25 Mg/100 Mg Tablet PO QPM PRN RLS Clopidogrel Bisulfate 75 mg 08/18/25 09:00 08/18/25 08:38 Clopidogrel 75 Mg Tablet PO 75 mg DAILY ELISABETH Administration Hydralazine HCl 10 mg 08/18/25 02:39 Hydralazine Inj 20 Mg/Ml Vial IVP Q6H PRN if SBP > 200 mmHG or DBP > 100 Ondansetron HCl 4 mg 08/18/25 02:39 Ondansetron Odt 4 Mg Tablet TL Q6HR PRN Nausea / Vomiting Sodium Chloride 10 ml 08/18/25 02:39 Sodium Chloride Flush 0.9% 10 Ml Syringe IVP PRN PRN NEEDED PER PROVIDER ORDERS Sodium Chloride 10 ml 08/18/25 09:00 08/18/25 11:15 Sodium Chloride Flush 0.9% 10 Ml Syringe IVP 10 ml 0100,0900,1700 ELISABETH Administration Objective Vital Signs/Intake & Output Vital Signs: Vital Signs x48h Temp Pulse Pulse Resp BP Pulse Ox 08/18/25 13:15 97.5 F L 80 20 153/87 H 94 08/18/25 08:45 97.9 F 77 20 169/91 H 93 08/18/25 08:45 97.9 F 77 20 169/91 H 93 08/18/25 08:35 78 20 08/18/25 06:25 98.1 F 74 14 156/90 H 94 Intake & Output: Intake & Output 1108/16/25 08/17/25 08/18/25 23:59 23:59 23:59 23:59 Intake Total 1000 / 1000 900 / 900 Output Total 1400 / 1400 Balance 1000 / 1000 -500 / -500 Weight (kg) 127.8 kg 126.5 kg Lab Results 08/17/25 20:38 08/17/25 20:38 Other Labs: Lab Results x24hrs 08/17/25 08/17/25 Range/Units 21:15 20:38 WBC 5.7 (4.8-10.8) x10^3/uL RBC 4.75 (4.70-6.10) 10^6/uL Hgb 14.4 (14.0-18.0) g/dL Hct 43.8 (42.0-52.0) % MCV 92.2 (80.0-94.0) fL MCH 30.3 (27.0-31.0) pg MCHC 32.9 (32.0-36.0) g/dL RDW 12.9 (12.0-15.0) % Plt Count 145 (130-450) 10^3/uL MPV 8.9 (7.4-11.4) fL Neut # (Auto) 3.9 (1.5-6.6) 10^3/uL Lymph # (Auto) 1.3 L (1.5-3.5) 10^3/uL Chaves # (Auto) 0.4 (0.0-1.0) 10^3/uL Eos # (Auto) 0.1 (0.0-0.7) 10^3/uL Baso # (Auto) 0.0 (0.0-0.1) 10^3/uL Absolute Nucleated RBC 0.00 x10^3/uL Nucleated RBC % 0.0 /100WBC PT 12.4 (9.9-12.6) secs INR 1.1 (0.8-1.2) APTT 23.3 L (24.9-33.3) secs Sodium 138 (135-145) mmol/L Potassium 3.7 (3.5-4.5) mmol/L Chloride 103 (101-111) mmol/L Carbon Dioxide 26 (21-32) mmol/L Anion Gap 9.0 (6-13) BUN 10 (6-20) mg/dL Creatinine 0.9 (0.6-1.3) mg/dL Estimated GFR (MDRD) 84 L (>89) Glucose 150 H (74-104) mg/dL Estimat Average Glucose 105 H (70-100) mg/dL Hemoglobin A1c % 5.3 (4.27-6.07) % Calcium 10.3 (8.5-10.3) mg/dL Total Bilirubin 0.9 (0.2-1.0) mg/dL AST 16 (10-42) IU/L ALT 18 (10-60) IU/L Alkaline Phosphatase 67 (42-121) IU/L Total Protein 6.8 (6.4-8.9) g/dL Albumin 4.2 (3.2-5.5) g/dL Globulin 2.6 (2.1-4.2) g/dL Albumin/Globulin Ratio 1.6 (1.0-2.2) Triglycerides 73 mg/dL Cholesterol 112 ( - 200) mg/dL LDL Cholesterol, Calc 39 ( - 129) mg/dL VLDL Cholesterol 15 mg/dL HDL Cholesterol 58 L (60 - ) mg/dL LDL/HDL Ratio 0.7 (<3.6) Cholesterol/HDL Ratio 1.9 (<5.0) Nasal Adenovirus (PCR) NOT DETECTED Nasal B. parapertussis DNA (PCR) NOT DETECTED Nasal Coronavir 229E PCR NOT DETECTED Nasal Coronavir HKU1 PCR NOT DETECTED Nasal Coronavir NL63 PCR NOT DETECTED Nasal Coronavir OC43 PCR NOT DETECTED Nasal Enterovir/Rhinovir PCR NOT DETECTED Nasal Influenza B PCR NOT DETECTED Nasal Influenza A PCR NOT DETECTED Nasal Parainfluen 1 PCR NOT DETECTED Nasal Parainfluen 2 PCR NOT DETECTED Nasal Parainfluen 3 PCR NOT DETECTED Nasal Parainfluen 4 PCR NOT DETECTED Nasal RSV (PCR) NOT DETECTED Nasal B.pertussis DNA PCR NOT DETECTED Nasal C.pneumoniae (PCR) NOT DETECTED [place] Human Metapneumo PCR NOT DETECTED Nasal M.pneumoniae (PCR) NOT DETECTED Nasal SARS-CoV-2 (PCR) NOT DETECTED Assessment/Plan Problem List (1) Vertigo:
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
[2025-08-18] MEDS ORDERED: oxyCODONE 5 MG TABLET PO PRN (16:30)
--- NOTE | 2025-08-18 16:50 | MRI Report ---
PROCEDURE: MRI Brain WO INDICATIONS: STROKE SYMPTOMS, VERTIGO TECHNIQUE: Multisequence MRI of the brain was performed without intravenous contrast. COMPARISON: 04/07/2023. Correlation is also made with CT examinations dated 08/17/2025. FINDINGS: Image quality: Diagnostic. CSF Spaces: Basal cisterns are patent. No extra-axial fluid collections. Ventricles are normal in size and shape. Brain: No intracranial mass effect or hemorrhage. Das/white matter interface is normal. Brainstem appears normal. Diffusion-weighted images demonstrate no acute ischemic insult. No chronic ischemic insults. Normal intravascular flow voids are present. Age-appropriate brain parenchymal volume loss and chronic small vessel ischemic change can be seen. Skull and face: Calvarium has normal marrow signal. Orbits appear normal. Sinuses: Sinuses and mastoids are clear. IMPRESSION: No findings of acute or subacute infarction are seen. No prior territorial infarction can be seen. Reviewed by: Freddy Leroy MD on 08/18/2025 3:46 PM [facility] Approved by: Freddy Leroy MD on 08/18/2025 3:46 PM [facility] Station ID: [id number]
[2025-08-18] MEDS ORDERED: NORTRIPTYLINE 25 MG CAPSULE PO SCH (17:00)
[2025-08-18 18:03] VITALS: BP 161/85; TEMP 97.9; O2SAT 95
--- NOTE | 2025-08-18 18:05 | PT Plan of Care ---
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 PMH includes 2 prior CVA's in 2022 without residual hemiparesis. Since the prior CVA's he does have mild L facial droop and STM/cog deficits but never saw FINANCIAL PROFESSIONAL. He has also had multiple lumbar surgical procedures and has an implanted nerve stimulator for modulating back pain. Please see chart for complete medical hx. The pt was received resting comfortably supine in bed and presented today with good B UE and LE strength that were globally symmetric, intact B LE sensation, normal coordination of B UE's and B LE's, normal oculomotor function, and all vestibular testing for central dysfunction were negative. At this time the pt appears to be at his baseline for mobility and does not require further skilled PT, however, imaging has not returned and therefore it is recommend that he remain on PT caseload in case an infarct is noted and if mobility deficits become present. If these do not occur then recommend DC home without further rehab once pt medically stable. Due to known memory/cognitive deficits it is recommended that the pt have a FINANCIAL PROFESSIONAL referral placed. This plan was discussed with the pt and his , they were both in agreement with this. At the end of the session the pt was supine in bed with call light in reach and all needs met. RN was updated that pt was cleared to be Ind in the room as long as he used the cane. updated on pt's status and DC rec. No goals will be set unless a decline in functional mobility presents. PLAN Frequency: 1-2x/day Duration: DC if imaging unremarkabl DISCHARGE RECOMMENDATIONS Discharge Location: Previous Living Situation Support/Services Needed: No needs Other Discharge Equipment: pt owns all recommended DME Transport Needs at Discharge: Personal vehicle
--- NOTE | 2025-08-18 20:44 | ECHO Report ---
Version: 1 Study ID: [id number] [id number] Adult Echocardiogram Report Name: LINETTE BROWN Study Date: 08/18/2025, 7: 29 AM BP: 156 / 90 mmHg Patient Location: ^2212^01 HR: 63 bpm : 1960 (MM/DD/YYYY) Gender: Male Height: 73 in Age: 65 Years Weight: 281 lb BSA: 2.49 m² Reason For Study: STROKE EVALUATION History: Saline contrast BUBBLE study ordered. Previous study of 04/24/2024 was technically difficult and limited. EF 50-55%, Mild Ascending Aorta enlargement of 4.1 cm, No significant valve disease. Interpretation Summary Global left ventricular systolic function is normal. The visual left ventricular ejection fraction is estimated at 55 to 60%. The right ventricle is normal in size and function. The interatrial septum appears normal, without evidence of shunt by 2D imaging and color Doppler. Saline contrast Bubble study with/with out Valsalva is negative for Atrial Septal shunt. Left Ventricle: The left ventricle is normal in size. No thrombus seen in the left ventricle. The visual left ventricular ejection fraction is estimated at 55 to 60%. Global left ventricular systolic function is normal. The overall diastolic pattern is one of normal left ventricular relaxation and filling pressures. Right Ventricle: The right ventricle is normal in size and function. TAPSE is consistent with normal right ventricular function. The tricuspid annular plane systolic excursion (TAPSE) measurement is 2.4 cm. Aortic Valve: The aortic valve is mildly calcified. The aortic valve is trileaflet. No hemodynamically significant valvular aortic stenosis. Trace aortic regurgitation is present. Mitral Valve: The mitral valve is visually normal in structure and function. No evidence of mitral stenosis is seen. There is trace mitral regurgitation. Tricuspid Valve: The tricuspid valve is normal in structure and function. There is no tricuspid stenosis. Trace tricuspid regurgitation present. Pulmonic Valve: The pulmonic valve is normal in structure and function. There is no pulmonic valvular stenosis. There is no pulmonic valvular regurgitation. Left Atrium: The left atrial size is normal. Right Atrium: The right atrium is mildly dilated. The inferior vena cava appears normal. Atrial Septum: The interatrial septum appears normal, without evidence of shunt by 2D imaging and color Doppler. Saline contrast Bubble study with/with out Valsalva is negative for Atrial Septal shunt. Aorta: The ascending aorta is mildly dilated. The diameter of the ascending aorta is 4.1 cm. The transverse arch is normal in size. The sinuses of Valsalva are normal in size. Pulmonary Artery: The pulmonary artery is not well visualized, but is probably normal size. Inferior vena cava dynamics indicate normal right atrial pressures. Pulmonary artery systolic pressure could not be estimated due to an insufficient tricuspid regurgitant jet. Pericardium/Pleural Space: There is no pericardial effusion. Left Ventricle IVSd: 0.99 cm LVIDd: 4.4 cm LVPWd: 0.92 cm LVIDs: 3.0 cm ESV(sp4-el): 60.3 ml Right Ventricle TAPSE: 2.38 cm RV S Mike: 13.8 cm/sec Atria LA dimension: 5.5 cm LAV(MOD-sp4): 42.5 ml LAV(MOD-sp2): 40.3 ml Diastolic Function MV dec time: 0.22 sec MV E max mike: 79.2 cm/sec MV A max mike: 96.1 cm/sec Aortic Valve LVOT diam: 2.09 cm LV V1 mean P.6 mmHg LV V1 mean: 76.3 cm/sec LV V1 VTI: 23.4 cm Ao V2 VTI: 41.0 cm Ao mean P.2 mmHg Ao V2 mean: 136.4 cm/sec LV V1 max: 108.2 cm/sec LV V1 max P.7 mmHg Ao max P.0 mmHg Ao V2 max: 187.4 cm/sec Mitral Valve MV max P.7 mmHg MV V2 max: 96.3 cm/sec MV mean P.55 mmHg MV V2 mean: 58.7 cm/sec MV V2 VTI: 26.8 cm Aorta Ao root diam: 3.3 cm MMode/2D Measurements & Calculations Ao root diam: 3.3 cm BMI: 37.1 kilograms/m² [facility] 2[facility] m² ESV(sp4-el): 60.3 ml IVSd: 0.99 cm LA A4C-A/L: 20.2 cm² LA dimension: 5.5 cm LA ESV-A/L: 57.9 ml LA Vol Index: 32.3 ml/m² LAV(MOD-sp2): 40.3 ml LAV(MOD-sp4): 42.5 ml LVIDd: 4.4 cm LVIDs: 3.0 cm LVOT diam: 2.09 cm LVPWd: 0.92 cm RA A4Cs: 16.8 cm² TAPSE: 2.38 cm Doppler Measurements & Calculations Ao max P.0 mmHg Ao mean P.2 mmHg Ao V2 max: 187.4 cm/sec Ao V2 mean: 136.4 cm/sec Ao V2 VTI: 41.0 cm Lat E/e': 11.4 LV V1 max: 108.2 cm/sec LV V1 max P.7 mmHg LV V1 mean: 76.3 cm/sec LV V1 mean P.6 mmHg LV V1 VTI: 23.4 cm Med E/e': 10.8 MV A max mike: 96.1 cm/sec MV dec time: 0.22 sec MV DVI-pr: 0.82 MV E max mike: 79.2 cm/sec MV max P.7 mmHg MV mean P.55 mmHg MV V2 max: 96.3 cm/sec MV V2 mean: 58.7 cm/sec MV V2 VTI: 26.8 cm PA max P.9 mmHg PA V2 max: 140.4 cm/sec RV S Mike: 13.8 cm/sec Other Measurements & Calculations Ao root area: 8.5 cm² KHANH(I,D): 1.97 cm² KHANH(V,D): 1.99 cm² EDV(Teich): 88.7 ml EF(sp-el): 50.0 % EF(Teich): 60.4 % ESV(Teich): 35.2 ml FS: 32.0 % LVOT area: 3.4 cm² MV E/A: 0.82 MVA(VTI): 3.0 cm² SV(LVOT): 80.6 ml MD Catalina Diaz 08/18/2025, 8: 43 PM Ordering Physician: Loree Torres Referring Physician: Miki Mayen Performed By: MELLY
[2025-08-18] MEDS ORDERED: ATORVASTATIN 40 MG TABLET PO SCH (21:00)
[2025-08-18] MEDS ORDERED: GABAPENTIN 300 MG CAPSULE PO SCH (21:00)
[2025-08-18] MEDS ORDERED: METOPROLOL SUCCINATE 25 MG TABLET PO SCH (21:00)
[2025-08-19] MEDS ORDERED: PANTOPRAZOLE 40 MG TABLET PO SCH (07:00)
[2025-08-19] MEDS ORDERED: NORTRIPTYLINE 25 MG CAPSULE PO SCH (08:00)
[2025-08-19] MEDS ORDERED: TAMSULOSIN 0.4 MG CAPSULE PO SCH (09:00)
[2025-08-19] MEDS ORDERED: ATORVASTATIN 40 MG TABLET PO SCH (09:00)
== END 2025-08-18 17:30 | disposition home or self-care (01) ==
LOC: MS2 20:34 → ED 20:34 → MS2 08-18 02:22
PROVIDERS: ADMIT Family Medicine; ATTEND Family Medicine